=== PATIENT | male | born 1945 | race Caucasian/White ===

== ENCOUNTER 2019-07-18 13:04 | Outpatient (CLI) | payer MEDICARE ==
[2019-07-18 14:24] LABS: #Basophils 0.1 thou/uL (0.0-0.2); #Eosinphils 0.2 thou/uL (0.0-0.7); #Lymphocytes 2.3 thou/uL (1.20-3.40); #Monocytes 0.8 thou/uL (0.11-0.59); %Basophils 0.7 % (0.0-1.0); %Eosinophils 1.8 % (0.0-10.0); %Lymphocytes 22.1 % (21.0-51.0); %Monocytes 7.5 % (0.0-10.0); Mean Corpuscular HGB CONC 32.2 g/dL (32.0-36.0); Mean Corpuscular Hemoglobin 30.8 pg (27.0-31.0); Mean Corpuscular Volume 95.6 fL (78.0-98.0); Mean Platelet Volume 9.6 fL (7.4-10.4); Platelet Count 404 thou/uL (130-400); RBC Distribution Width 12.2 % (11.5-14.5); Red Blood Cell (RBC) Count 4.86 mill/uL (4.70-6.10); White Blood Cell (WBC) Count 10.2 thou/uL (4.8-10.8)
[2019-07-18 14:44] LABS: ALT (SGPT) 184 U/L (8-55); AST (SGOT) 122 U/L (5-34); Albumin 4.1 g/dL (3.4-4.8); Alkaline Phosphatase 631 U/L (40-110); Anion Gap 14 mmol/L (10-20); BUN (Urea Nitrogen) 20 mg/dL (8.4-25.7); Bilirubin, Direct 1.4 mg/dL (0.1-0.3); Bilirubin, Total 2.1 mg/dL (0.2-1.2); Calc. Creatinine Clearance 0 mL/min (70-130); Carbon Dioxide 24 mmol/L (23-31); Chloride 103 mmol/L (98-107); Estimated GFR-MDRD 49; Glucose 306 mg/dL (83-110); Potassium 4.4 mmol/L (3.5-5.1); Protein, Total 8.3 g/dL (5.8-8.1); Sodium 137 mmol/L (136-145)
--- NOTE | 2019-07-18 17:11 | EKG ---
Test Reason : Blood Pressure : / mmHG Vent. Rate : 094 BPM Atrial Rate : 094 BPM P-R Int : 160 ms QRS Dur : 090 ms QT Int : 364 ms P-R-T Axes : 030 007 -08 degrees QTc Int : 455 ms Normal sinus rhythm Minimal voltage criteria for LVH, may be normal variant Inferior infarct , age undetermined Possible Anterolateral infarct , age undetermined Abnormal ECG Confirmed by JAYLENE COWAN ([id number]) on 07/18/2019 5:11:10 PM Referred By: DESHAWN Confirmed By:JAYLENE COWAN
== END 2019-07-18 13:05 | disposition home or self-care (01) ==
LOC: LABBT 13:04 → EDSTATUS 13:15
PROVIDERS: ATTEND Surgery
DX: Z01.818 Encounter for other preprocedural examination (principal); K80.20 Calculus of gallbladder without cholecystitis without obstruction
CPT/HCPCS: 80048; 80076; 85025; 93005; 93010

== ENCOUNTER 2019-07-23 11:53 | Inpatient (IN) | payer MEDICARE ==
[2019-07-18 13:23] VITALS: BMI 27.5
[2019-07-23] MEDS ORDERED: Sodium Chloride 0.9% 100 ML ONE (12:22)
[2019-07-23] MEDS ORDERED: cefOXitin 2 GM VIAL ONE (12:22)
[2019-07-23] MEDS ORDERED: Bupivacaine HCl 0.25%/Epi 0.0005/PF 10 ML VIAL FS ONE ×2 (13:03→13:04)
[2019-07-23] MEDS ORDERED: Iothalamate Meglumine 60% 50 ML VIAL FS ONE ×2 (13:03→13:10)
[2019-07-23] MEDS ORDERED: Fentanyl 100 MCG/2 ML VIAL ONE ×2 (13:29→15:10)
[2019-07-23] MEDS ORDERED: Ondansetron HCl/PF 4 MG/2 ML Vial IVP PRN (14:47)
[2019-07-23] MEDS ORDERED: Promethazine HCl 25 MG/ML VIAL IM PRN ×2 (14:47→15:54)
[2019-07-23] MEDS ORDERED: Promethazine HCl 25 MG/ML VIAL SLOW IVP PRN (14:47)
[2019-07-23] MEDS ORDERED: Ondansetron PF 4 MG/2 ML Vial ONE (15:15)
[2019-07-23] MEDS ORDERED: PROPOFOL 200 MG/20 ML VIAL ONE (15:15)
[2019-07-23] MEDS ORDERED: Rocuronium Bromide 10 MG/ML (10ML VIAL) ONE (15:15)
[2019-07-23] MEDS ORDERED: Ketorolac Tromethamine 30 MG/ML VIAL ONE (15:15)
[2019-07-23] MEDS ORDERED: Glycopyrrolate 0.2 MG/ML 5 ML SYRINGE ONE (15:15)
[2019-07-23] MEDS ORDERED: Ondansetron PF 4 MG/2 ML Vial IVP PRN (15:54)
[2019-07-23] MEDS ORDERED: Morphine 4 MG/ML VIAL SLOW IVP PRN (15:54)
[2019-07-23] MEDS ORDERED: Morphine 2 MG/ML SYRINGE SLOW IVP PRN (15:54)
[2019-07-23] MEDS ORDERED: Mag-Al 1200 mg/1200 mg/30 ML UDCUP PO PRN (15:54)
[2019-07-23] MEDS ORDERED: Dextrose 5% in Water 1,000 ML IV PRN (15:54)
[2019-07-23] MEDS ORDERED: HYDROcodone/Acetaminophen 7.5/325 mg Tablet PO PRN ×2 (15:54)
[2019-07-23] MEDS ORDERED: hydrALAZINE 20 MG/ML VIAL SLOW IVP PRN (15:54)
[2019-07-23] MEDS ORDERED: Calcium Carbonate 500 MG ChewTAB PO PRN (15:54)
[2019-07-23] MEDS ORDERED: Dextrose 50% Abboject 50 ML SYRINGE SLOW IVP PRN (15:54)
[2019-07-23] MEDS: Sodium Chloride 0.9% 1,000 ML IV SCH (16:56)
[2019-07-23] MEDS: HumaLOG 300 UNITS/3 ML VIAL SC PRN ×2 (17:47→22:10)
[2019-07-23] MEDS ORDERED: Piperacillin/Tazobactam 3.375 GM in Sodium Chloride 0.9% 100 ML IVPB SCH (18:00)
[2019-07-23] MEDS ORDERED: diphenhydrAMINE 25 MG CAP PO PRN (18:41)
[2019-07-23] MEDS ORDERED: diphenhydrAMINE 50 MG/ML VIAL IVP SCH (18:45)
[2019-07-23] MEDS ORDERED: Gadobenate Dimeglumine 529 MG/1 ML (20ML VIAL) ONE (20:19)
[2019-07-23] MEDS: metroNIDAZOLE 500 MG TAB PO SCH (20:57)
[2019-07-23] MEDS: Famotidine 20 MG TAB PO SCH (20:57)
[2019-07-23] MEDS: Acetaminophen 500 MG TAB PO PRN (20:58)
--- NOTE | 2019-07-23 21:42 | OP ---
DATE OF PROCEDURE: 07/23/2019 PREOPERATIVE DIAGNOSIS: Symptomatic cholelithiasis with elevated liver tests. POSTOPERATIVE DIAGNOSIS: Gangrenous cholecystitis with Mirizzi-type changes. PROCEDURES: Subtotal laparoscopic cholecystectomy with placement of intraabdominal drain (cholangiogram was unable to be performed.) SPECIMEN: Gallbladder wall, partial. BLOOD LOSS: 50 mL. COMPLICATIONS: None. FINDINGS: There were gangrenous changes to the gallbladder and parts. There was purulent material in the gallbladder in the area of the base in the fundus of the gallbladder. There was such significant inflammatory type changes that more dissection was deemed dangerous and not performed. Subtotal just above this was performed. Drain was placed. TECHNIQUE: The patient was taken to the operating room and laid supine on the operating room table. After general anesthetic was obtained, the abdomen was shaved, prepped, and draped in a sterile fashion. A curved incision was made below the umbilicus. Cautery was used to dissect down to and score the fascia. Abdominal cavity entered bluntly using a Bre clamp. Holding stitch of PDS was placed on each side of the fascia. Arce trocar was placed. High-flow pneumoperitoneum was obtained. An upper midline 5 mm port and 2 right upper quadrant 5 mm ports were placed in direct visualization. The omentum was stuck over the top of the gallbladder. The gallbladder could not be seen. This was taken down. Laparoscopic LigaSure was opened to take this omentum off, because there were multiple blood vessels seen in the omentum. The gallbladder was finally exposed. It was unable to be grasped. A hole was made in order to facilitate grasping and it was full of purulent material. This was all suctioned out. The gallbladder was able to be pushed up over the liver. There was significant local inflammatory change, the whole gallbladder all the way down. The base of the gallbladder could never be exposed secondary to severe inflammation and scarring. Decision was made to perform subtotal cholecystectomy to prevent injury to the common bile duct below and the LigaSure was used to take the gallbladder wall off and as much as the posterior wall could be taken off from the liver bed was removed. It was placed in EndoCatch bag and brought out through the Tsering. Meticulous hemostasis was obtained on the liver bed. There was no ongoing bleeding in the abdomen. The right upper quadrant irrigated using sterile solution until returns were clear. A 19 round drain brought out through the right upper quadrant incision, left in the gallbladder fossa, sewn in place using silk suture, connected to ZIYAD drain. All port sites were infiltrated using local anesthetic. All ports were removed under camera visualization. Pneumoperitoneum was let down. PDS used to close the fascial defect below the umbilicus. The top 2 incisions were closed using 4-0 Monocryl and Dermabond. Antimicrobial disc and a Tegaderm placed over the drain site. If the patient's liver function test are normalized, he will need MRCP. If he has bile drainage in his drain, he will need an ERCP. He will be admitted postop. Job ID: [id number]
[2019-07-23] MEDS: Famotidine/PF 20 mg/2ml Vial SLOW IVP SCH (23:14)
[2019-07-24 05:41] LABS: #Basophils 0.1 thou/uL (0.0-0.2); #Eosinphils 0.2 thou/uL (0.0-0.7); #Lymphocytes 2.1 thou/uL (1.20-3.40); #Monocytes 0.9 thou/uL (0.11-0.59); #Neutrophils 5.7 thou/uL (1.40-6.50); %Basophils 0.9 % (0.0-1.0); %Eosinophils 1.8 % (0.0-10.0); %Lymphocytes 23.2 % (21.0-51.0); %Monocytes 10.2 % (0.0-10.0); %Neutrophils 63.9 % (42.0-75.0); Hemoglobin 12.8 g/dL (14.0-18.0); Mean Corpuscular HGB CONC 32.6 g/dL (32.0-36.0); Mean Corpuscular Hemoglobin 31.1 pg (27.0-31.0); Mean Corpuscular Volume 95.2 fL (78.0-98.0); Mean Platelet Volume 9.4 fL (7.4-10.4); Platelet Count 283 thou/uL (130-400); RBC Distribution Width 12.1 % (11.5-14.5); Red Blood Cell (RBC) Count 4.12 mill/uL (4.70-6.10); White Blood Cell (WBC) Count 8.9 thou/uL (4.8-10.8)
[2019-07-24] MEDS: Sodium Chloride 0.9% 1,000 ML IV SCH ×3 (05:55→23:49)
[2019-07-24] MEDS: Acetaminophen 500 MG TAB PO PRN ×2 (06:12→18:52)
[2019-07-24 06:17] LABS: ALT (SGPT) 213 U/L (8-55); AST (SGOT) 140 U/L (5-34); Albumin 3.2 g/dL (3.4-4.8); Alkaline Phosphatase 500 U/L (40-110); Anion Gap 10 mmol/L (10-20); BUN (Urea Nitrogen) 12 mg/dL (8.4-25.7); Bilirubin, Total 3.4 mg/dL (0.2-1.2); Calc. Creatinine Clearance 66 mL/min (70-130); Calcium 8.5 mg/dL (7.8-10.44); Carbon Dioxide 27 mmol/L (23-31); Chloride 105 mmol/L (98-107); Estimated GFR-MDRD 64; Globulin 3.1 g/dL (2.4-3.5); Glucose 134 mg/dL (83-110); Lipase 10 U/L (8-78); Potassium 3.8 mmol/L (3.5-5.1); Protein, Total 6.3 g/dL (5.8-8.1); Sodium 138 mmol/L (136-145)
--- NOTE | 2019-07-24 07:12 | PDOC.GSPN ---
Surgery Progress Note: Subj - Subjective Patient reports: no new complaints Narrative: Mr. Dhillon is a 74 y/o male who is POD 1 from subtotal laproscopic cholecystectomy with intrabdominal ZIYAD-drain placement. He is doing well this morning and only complaint is moderate abdominal soreness. He reports requesting to have a indwelling catheter put in due to feeling the urge to urinate, but being unable to. He has passed flatus a couple of times. He is tolerating diet well and has ambulated in the hallways 2x without issues. ZIYAD drain has been emptied 3x total since surgery. He denies chest pain, dyspnea, dizziness, nausea, vomiting, reflux, and passing of bowel movement yet. Surgery Progress Note: Obj - Vital signs Vital signs: Vital Signs - Most Recent Temp Pulse Resp BP Pulse Ox 97.9 F 62 18 154/89 H 94 L 07/24/19 03:57 07/24/19 03:57 07/24/19 03:57 07/24/19 03:57 07/24/19 05:30 - Physical Exam General: no distress, well developed ENT: normal mucosa Neck: no lymphadectomy, no masses Cardiovascular: regular rate and rhythm, no murmur, other (Pedal pulses 2+ bilaterally and symmetrically.) Respiratory: clear to auscultation, normal expansion, normal respiratory effort , breath sounds present Abdomen: soft, nondistended, positive bowel sounds, appropriately tender Psychiatric: oriented to time, oriented to person, oriented to place Wound: dressing clean,dry,intact, healing well (No erythema, purulent discharge , or bleeding from incisions or drain site.) Surgery Progress Note: Results - Labs Result Diagrams: 07/24/19 05:28 07/24/19 05:28 Lab results: Laboratory Results - last 24 hr 07/23/19 07/24/19 07/24/19 21:20 05:28 05:28 WBC 8.9 RBC 4.12 L Hgb 12.8 L Hct 39.2 L MCV 95.2 MCH 31.1 H MCHC 32.6 RDW 12.1 Plt Count 283 MPV 9.4 Neutrophils % 63.9 Lymphocytes % 23.2 Monocytes % 10.2 H Eosinophils % 1.8 Basophils % 0.9 Neutrophils # 5.7 Lymphocytes # 2.1 Monocytes # 0.9 H Eosinophils # 0.2 Basophils # 0.1 Sodium 138 Potassium 3.8 Chloride 105 Carbon Dioxide 27 Anion Gap 10 BUN 12 Creatinine 1.12 Estimated GFR (MDRD) 64 Glucose 134 H POC Glucose 244 H Calcium 8.5 Total Bilirubin 3.4 H AST 140 H ALT 213 H Alkaline Phosphatase 500 H Serum Total Protein 6.3 Albumin 3.2 L Globulin 3.1 Albumin/Globulin Ratio 1.0 L Lipase 10 07/24/19 05:39 WBC RBC Hgb Hct MCV MCH MCHC RDW Plt Count MPV Neutrophils % Lymphocytes % Monocytes % Eosinophils % Basophils % Neutrophils # Lymphocytes # Monocytes # Eosinophils # Basophils # Sodium Potassium Chloride Carbon Dioxide Anion Gap BUN Creatinine Estimated GFR (MDRD) Glucose POC Glucose 112 H Calcium Total Bilirubin AST ALT Alkaline Phosphatase Serum Total Protein Albumin Globulin Albumin/Globulin Ratio Lipase Surgery Progress Note: A/P - Plan Plan: Mr. Dhillon is a 74 y/o male who is POD 1 from subtotal laproscopic cholecystectomy with intrabdominal ZIYAD-drain placement. -Currently on Levofloxacin and Flagyl PO -May consider discharge if pain & symptoms are well controlled -Plan to remove ash today -Continue current diet -Monitor for bowel movement -Monitor pain -Encourage ambulation & use of spirometer Addendum - Physician - Physician Attestation Date/Time: 07/24/19 8558 I personally performed or re-performed the physical examination and medical decision making. I have verified all student documentation or findings, including history, physical exam and/or medical decision making. MRCP Derbes to see for possible ERCP
--- NOTE | 2019-07-24 10:59 | PRG ---
DATE OF SERVICE: 07/24/2019 SUBJECTIVE: Mr. Dhillon is postop day 1, Mirizzi syndrome type, subtotal cholecystectomy with drain placement. This morning, his liver function tests are high with his bilirubin up. He is hemodynamically stable. On exam, he complains of mild soreness. His wounds are healing well. ZIYAD drain is only serosanguineous. Bilirubin is 3.4 today that was up from 2 on his preop labs. His lipase is normal at 10. ASSESSMENT: Postop day 1, acute on chronic cholecystitis, cholecystectomy, subtotal, with Mirizzi type changes. PLAN: Have discussed with Dr. Sandy. He may need ERCP. We will start with MRCP to evaluate his common duct. This could all be just swelling and inflammation from the Mirizzi type syndrome. Job ID: [id number]
[2019-07-24] MEDS: NIFEdipine XL 90 MG TAB PO SCH (11:51)
[2019-07-24] MEDS: metroNIDAZOLE 500 MG TAB PO SCH ×3 (11:51→21:12)
[2019-07-24] MEDS: Losartan 25 MG TAB PO SCH (11:51)
[2019-07-24] MEDS: Famotidine/PF 20 mg/2ml Vial SLOW IVP SCH ×2 (11:52→22:21)
[2019-07-24] MEDS: Famotidine 20 MG TAB PO SCH ×2 (11:55→21:11)
--- NOTE | 2019-07-24 15:11 | MRI ---
MR of the abdomen with and without IV contrast INDICATION: History of laparoscopic cholecystectomy with elevated bilirubin TECHNIQUE: Multiplanar multisequence MR images were obtained of the abdomen with and without contrast utilizing MRCP protocol. Contrast: 20 cc of MultiHance was utilized. COMPARISON: None. FINDINGS: Mild motion artifact slightly limits image detail. Liver: No focal hepatic lesion is evident. No area of abnormal enhancement is demonstrated. Gallbladder and biliary system: The gallbladder is now surgically absent. There is heterogeneous sign al intensity seen filling the gallbladder fossa likely reflective of some mild edema as well as some residual hemorrhage from the patient's recent laparoscopic cholecystectomy. Small amount of dyana a is seen within Morison's pouch and along the right hepatic lobe. No large drainable fluid collection is grossly evident.The common bile duct measures: 3.8 mm . Pancreas: Normal appearing. Adrenal glands: Normal appearing. Kidneys: There is a 3 cm cyst involving the inferior pole of the right kidney. Left kidney is normal- appearing.. Spleen: Normal in size and signal intensity. Retroperitoneum and peritoneal cavity: No free fluid or lymphadenopathy is evident. There is bibasila r atelectasis. Osseous structures: Bone marrow signal intensity is within normal limits. IMPRESSION: 1. Cholecystectomy. 2. No gross intraluminal filling defect or intrahepatic or extra hepatic biliary ductal distention de monstrated. Some limitations examination is above. 3. Right renal cyst 4. Bibasilar atelectasis
[2019-07-24] MEDS: Tamsulosin HCl 0.4 MG CAP PO SCH (21:12)
--- NOTE | 2019-07-24 21:50 | CON ---
DATE OF CONSULTATION: HISTORY OF PRESENT ILLNESS: Mr. Dhillon is a 74-year-old, I was asked to see for elevated liver enzymes. He apparently had gone to see Dr. Ortiz recently, who manages his blood pressure. His daughter works in Dr. Ortiz's office. There, some labs were done that showed elevated liver enzymes on 07/12 with a bilirubin of 2.8. AST and ALT of 86 and 148, alkaline phosphatase of 565, direct bilirubin of 1.7 at that time. Apparently, he saw his PCP and had an ultrasound, which showed eventually gallstones, but that report is not available for my review. The patient was sent to see Dr. Ambrosio, had labs again that showed a bilirubin of 2.1, AST and ALT of 122 and 184, and alkaline phosphatase of 631, and bilirubin 1.4. The patient had a lap maile that was yesterday. Today, the LFTs are about the same. Bilirubin is 3.4. AST and ALT of 140 and 213, and alkaline phosphatase was 500. The patient had a complicated cholecystectomy with the fact that he had possible Mirizzi syndrome and the gallbladder cap had to be left in according to Dr. Ambrosio. The patient had a drain left in place, but there was no bilious drainage. The patient reports he feels completely fine today. I have talked with Dr. Ambrosio, I recommended to get an MRCP as opposed to proceeding with ERCP, and the MRCP has been read showing no filling defects and no dilated duct. There is some edema and residual hemorrhage in the gallbladder fossa and some edema under the right hepatic lobe, but no fluid collection. The common bile duct was measured at 3.8 mm. There was no intrahepatic ductal dilatation. The spleen appeared normal. The kidneys otherwise appeared normal. PAST MEDICAL HISTORY: History of upper and lower endoscopy in about 2014 related to anemia, was found to have significant hiatal hernia, which was subsequently repaired. He has some hypertension, he was just recently been diagnosed with diabetes. PAST SURGICAL HISTORY: Otherwise none. He has had some trauma related to his hand when he used to do [employer]. ALLERGIES: NONE KNOWN. MEDICATIONS: At home; 1. Nifedipine. 2. Losartan. 3. Insulin, just started. Medications here; 1. Tylenol. 2. Maalox. 3. DuoNeb. 4. Tums. 5. Benadryl. 6. Pepcid. 7. [place] p.r.n. 8. Insulin sliding scale. 9. Levofloxacin. 10. Morphine. 11. Zofran. 12. Protonix p.r.n. REVIEW OF SYSTEMS: Negative for dysphagia or odynophagia. Negative for antecedent pain to all this, except for occasional pain over the past several weeks after eating in the upper abdomen. He has had no melena, hematochezia, or hematemesis. He has no chest pain, shortness of breath, or dyspnea on exertion. Denies any weight loss. PHYSICAL EXAMINATION: VITAL SIGNS: Temperature is 97.2, pulse 63, blood pressure 130/65. GENERAL: The patient is resting comfortably. He is in no distress. LUNGS: Clear. HEART: Regular rate and rhythm without clicks or murmurs. ABDOMEN: Soft and nontender. No rebound. There is no guarding. Drain is in place with about 15 mL of serosanguineous fluid. EXTREMITIES: No clubbing, cyanosis, or edema. LABORATORY STUDIES: As per HPI. Lipase was in addition to noted above was 10. ASSESSMENT: Elevated LFTs. At this time, there are no overt signs of biliary obstruction with normal MRCP. These changes of LFTs may be related to inflammation as apparently, gallbladder was very sick with acute and chronic changes. There is no overt signs of biliary dilatation to indicate obstruction. There is no overt evidence of bile drainage from his drain. RECOMMENDATIONS: Repeat LFTs tomorrow and observe him. May consider HIDA scan if LFTs are not getting better, or if the patient develops pain. If the patient developed bilious fluid from his ZIYAD drain, then we had to proceed with ERCP. We will follow along with you. Job ID: [id number]
[2019-07-24] MEDS: HumaLOG 300 UNITS/3 ML VIAL SC PRN (22:21)
[2019-07-25] MEDS: Sodium Chloride 0.9% 1,000 ML IV SCH ×3 (00:32→23:26)
[2019-07-25 05:36] LABS: #Eosinphils 0.3 thou/uL (0.0-0.7); #Lymphocytes 1.6 thou/uL (1.20-3.40); #Monocytes 0.7 thou/uL (0.11-0.59); #Neutrophils 5.6 thou/uL (1.40-6.50); %Basophils 0.4 % (0.0-1.0); %Eosinophils 3.4 % (0.0-10.0); %Lymphocytes 18.9 % (21.0-51.0); %Monocytes 8.9 % (0.0-10.0); %Neutrophils 68.3 % (42.0-75.0); Hemoglobin 13.7 g/dL (14.0-18.0); Mean Corpuscular HGB CONC 31.9 g/dL (32.0-36.0); Mean Corpuscular Hemoglobin 30.5 pg (27.0-31.0); Mean Corpuscular Volume 95.6 fL (78.0-98.0); Mean Platelet Volume 9.7 fL (7.4-10.4); Platelet Count 263 thou/uL (130-400); RBC Distribution Width 12.2 % (11.5-14.5); White Blood Cell (WBC) Count 8.2 thou/uL (4.8-10.8)
[2019-07-25 06:02] LABS: ALT (SGPT) 175 U/L (8-55); AST (SGOT) 87 U/L (5-34); Albumin 3.2 g/dL (3.4-4.8); Alkaline Phosphatase 486 U/L (40-110); Bilirubin, Direct 1.8 mg/dL (0.1-0.3); Bilirubin, Total 2.7 mg/dL (0.2-1.2); Lipase 8 U/L (8-78); Protein, Total 6.5 g/dL (5.8-8.1)
[2019-07-25] MEDS: Acetaminophen 500 MG TAB PO PRN ×3 (08:14→20:41)
[2019-07-25] MEDS: Famotidine 20 MG TAB PO SCH ×2 (08:14→20:42)
[2019-07-25] MEDS: NIFEdipine XL 90 MG TAB PO SCH (08:14)
[2019-07-25] MEDS: metroNIDAZOLE 500 MG TAB PO SCH ×3 (08:14→20:42)
[2019-07-25] MEDS: Losartan 25 MG TAB PO SCH (08:16)
[2019-07-25] MEDS: Famotidine/PF 20 mg/2ml Vial SLOW IVP SCH ×2 (08:42→23:26)
--- NOTE | 2019-07-25 10:28 | PDOC.GSPN ---
Surgery Progress Note: Subj - Subjective Patient reports: no new complaints, tolerating liquids well Surgery Progress Note: Obj - Vital signs Vital signs: Vital Signs - Most Recent Temp Pulse Resp BP Pulse Ox 97.9 F 92 14 139/80 94 L 07/25/19 07:56 07/25/19 08:14 07/25/19 07:56 07/25/19 08:16 07/25/19 07:56 - Physical Exam General: no distress Cardiovascular: regular rate and rhythm Respiratory: clear to auscultation Abdomen: soft, non tender Wound: healing well (ZIYAD serosang) Surgery Progress Note: Results - Labs Result Diagrams: 07/25/19 05:07 07/24/19 05:28 Lab results: Laboratory Results - last 24 hr 07/25/19 07/25/19 07/25/19 05:07 05:07 05:10 WBC 8.2 RBC 4.50 L Hgb 13.7 L Hct 43.0 MCV 95.6 MCH 30.5 MCHC 31.9 L RDW 12.2 Plt Count 263 MPV 9.7 Neutrophils % 68.3 Lymphocytes % 18.9 L Monocytes % 8.9 Eosinophils % 3.4 Basophils % 0.4 Neutrophils # 5.6 Lymphocytes # 1.6 Monocytes # 0.7 H Eosinophils # 0.3 Basophils # 0.0 POC Glucose 122 H Total Bilirubin 2.7 H Direct Bilirubin 1.8 H AST 87 H ALT 175 H Alkaline Phosphatase 486 H Serum Total Protein 6.5 Albumin 3.2 L Lipase 8 Surgery Progress Note: A/P - Problem (1) Cholecystitis Current Visit: Yes Code(s): K81.9 - CHOLECYSTITIS, UNSPECIFIED Status: Acute - Plan Plan: kay Dhillon is a 74 y/o male who is POD 2 from subtotal laproscopic cholecystectomy with intrabdominal ZIYAD-drain placement. -Currently on Levofloxacin and Flagyl PO -May consider discharge if pain & symptoms are well controlled, will discuss with Chuy Sandy down to 2.7 -Likely going to have to go home with ash and return to remove in my office -ZIYAD will stay in for one week
[2019-07-25] MEDS: HumaLOG 300 UNITS/3 ML VIAL SC PRN ×2 (17:27→22:39)
[2019-07-25] MEDS: Tamsulosin HCl 0.4 MG CAP PO SCH (20:42)
[2019-07-26 05:11] LABS: ALT (SGPT) 145 U/L (8-55); AST (SGOT) 67 U/L (5-34); Albumin 3.4 g/dL (3.4-4.8); Alkaline Phosphatase 527 U/L (40-110); Anion Gap 13 mmol/L (10-20); BUN (Urea Nitrogen) 7 mg/dL (8.4-25.7); Bilirubin, Total 2.4 mg/dL (0.2-1.2); Calc. Creatinine Clearance 82 mL/min (70-130); Calcium 8.9 mg/dL (7.8-10.44); Carbon Dioxide 23 mmol/L (23-31); Chloride 106 mmol/L (98-107); Estimated GFR-MDRD 82; Globulin 3.5 g/dL (2.4-3.5); Glucose 173 mg/dL (83-110); Potassium 3.3 mmol/L (3.5-5.1); Protein, Total 6.9 g/dL (5.8-8.1); Sodium 139 mmol/L (136-145)
[2019-07-26] MEDS: Sodium Chloride 0.9% 1,000 ML IV SCH ×3 (05:40→10:37)
[2019-07-26] MEDS: HumaLOG 300 UNITS/3 ML VIAL SC PRN ×2 (05:45→11:32)
[2019-07-26] MEDS: Famotidine 20 MG TAB PO SCH (07:57)
[2019-07-26] MEDS: metroNIDAZOLE 500 MG TAB PO SCH (07:57)
[2019-07-26] MEDS: Acetaminophen 500 MG TAB PO PRN (07:57)
[2019-07-26] MEDS: Famotidine/PF 20 mg/2ml Vial SLOW IVP SCH (07:58)
[2019-07-26] MEDS: Losartan 25 MG TAB PO SCH (07:58)
[2019-07-26] MEDS: NIFEdipine XL 90 MG TAB PO SCH (07:58)
--- NOTE | 2019-07-26 10:17 | PRG ---
DATE OF SERVICE: 07/25/2019 SUBJECTIVE: Mr. Dhillon ate good last night. He is having some soup this evening. He remains afebrile. OBJECTIVE: VITAL SIGNS: Temperature max 97.9, pulse 90, and blood pressure 110/64. ABDOMEN: Soft and nontender. ZIYAD drain is serosanguineous. LABORATORY DATA: White count is 8.2, hemoglobin is 13.7 stable, platelet count is 263. Bilirubin is 2.7 down from 3.4 yesterday. AST is 87 down from 140 yesterday, ALT 135 down from 213 yesterday, and alkaline phosphatase 486, down from 631 on 06/21. ASSESSMENT: Status post cholecystectomy with possible Mirizzi syndrome. There seems to be biliary drainage with no evidence of bile draining from the ZIYAD drain and drop in liver function test. I have talked with Dr. Ambrosio that we can advance diet and just watch the patient's labs for one more day to continue to trend down where the patient can go home with plan to follow up on Tuesday with Dr. Ambrosio revealed ZIYAD and his catheter. At that time, he agreed to recheck labs and his liver function test continued to trend down, we would not do anything else. If they bump back up or trend back up, then we may need to consider outpatient ERCP. Dr. Jose August will be here, biopsies tomorrow. If the patient has trend up liver enzymes, he needs to stay. We have discussed these issues with the patient's family and Dr. Ambrosio. Job ID: [id number]
--- NOTE | 2019-07-26 10:34 | DIS ---
DATE OF ADMISSION: 07/23/2019 DATE OF DISCHARGE: 07/26/2019 ADMIT DIAGNOSES: Acute cholecystitis with Mirizzi type syndrome, elevated liver function test. POSTOPERATIVE DIAGNOSES: Acute cholecystitis with Mirizzi type syndrome, elevated liver function test. PROCEDURES: Laparoscopic subtotal cholecystectomy by Hebert with drain placement without complication. CONDITION ON DISCHARGE: Improved. STAFF: [facility]. HOSPITAL COURSE: The patient underwent MRCP postop due to elevated liver function test. His drain output was clear on the day of discharge. It will stay in to monitor for bile leak. His bilirubin was down from 3 to 2.4. Labs will be repeated as an outpatient. He is going home with ZIYAD drain as well as a leg bag Lynch for urinary retention. He will see me on Tuesday and I will likely pull his catheter and his ZIYAD out at that point. Job ID: [id number]
[2019-07-26 11:02] VITALS: BP 122/88; TEMP 98.2
== END 2019-07-26 12:35 | disposition home or self-care (01) | DRG 417 ==
LOC: SDC 11:53 → SURG A 14:38
PROVIDERS: ADMIT Surgery; ATTEND Surgery
PROC: 0FT44ZZ Resection of Gallbladder, Percutaneous Endoscopic Approach (ICD-10-PCS; principal; 2019-07-23)
DX: K81.2 Acute cholecystitis with chronic cholecystitis (principal); K83.1 Obstruction of bile duct; K82.A1 Gangrene of gallbladder in cholecystitis
CPT/HCPCS: 36415; 36416; 74183; 80053; 80076; 83690; 85025; 88304; A9577; J0694; J1200; J1885; J2405; J2543; J2704; J3010; J3490; S0028

== ENCOUNTER 2019-08-01 13:49 | Inpatient (IN) | payer MEDICARE ==
[2019-08-01] MEDS ORDERED: Ondansetron PF 4 MG/2 ML Vial IVP PRN (14:47)
[2019-08-01 14:50] VITALS: BMI 27.3
--- NOTE | 2019-08-01 15:48 | HP ---
HISTORY: Mr. Dhillon is being admitted for possible bile leak. He was here in the hospital last week, where he had a cholecystectomy secondary to acute on chronic cholecystitis. In fact, his gallbladder was so adhered to surrounding structures that the entire gallbladder removed and the cap was left in place. The drain was left in place, which showed minimal drainage and after about 3 days here, he was discharged on with some Flomax for urinary retention and Lynch catheter in place and a ZIYAD drain in place. He was at Dr. Ambrosio's office on Tuesday, maybe yesterday, and his drains removed, his Lynch was slowly removed, and he had labs repeated. His bilirubin had increased to 4.4 from 2.4 on 07/26. AST and ALT had gone up to 383 and 365 from 67 and 145 and alk phos comes to 249 from 527. I saw him today. He felt completely fine. Denying pain. He is eating well, he has had a little bit of postcholecystectomy diarrhea. He was sent for a CAT scan to re-evaluate as he had an MRI on 07/24 that showed no evidence of intrahepatic ductal dilatation or choledocholithiasis and had a 3 mm duct. The CAT scan today shows development of intrahepatic ductal dilatation, which is not noted on MRI from last week and increase in size of fluid collection in subhepatic space, a little bit of air. Dr. Gan called, he was worried about possibly of bile leak. This in combination with Dr. Ambrosio's concern for possible Mirizzi's like anatomy at the time of his laparoscopic cholecystectomy readmitted to the hospital and started on some antibiotics with plans for ERCP sometime in the next 24 hours. The patient unfortunately has eaten just a few hours ago at 12:30. Again, he denies pruritus, fever, chills, nausea, or vomiting. He is voiding well. He has been eating well. PAST MEDICAL HISTORY: 1. History of urinary retention with previous surgeries. 2. Hypertension. 3. History of diabetes. PAST SURGICAL HISTORY: Arm trauma in the past with surgery and recent laparoscopic cholecystectomy. He has had a colonoscopy in 2015 and EGD for iron deficiency anemia. Hiatal hernia repair after EGD in 2014 and found large hiatal hernia. ALLERGIES: PENICILLIN. HE HAD A REACTION TO ZOSYN ON LAST ADMISSION. HOME MEDICATIONS: 1. Nifedipine. 2. Losartan. 3. Insulin. 4. Flomax 0.4 daily. REVIEW OF SYSTEMS: Negative for chest pain, shortness of breath, dyspnea on exertion, melena, hematochezia, or hematemesis. PHYSICAL EXAMINATION: VITAL SIGNS: He is afebrile in the office earlier today, his temperature was 98, pulse was 87, blood pressure 120s over 80 to 90. GENERAL: He is alert and oriented to person, place, and time. He is conversant. He has good memory. HEENT: Oropharynx without lesions. He is mildly icteric. LUNGS: Clear. HEART: Regular without clicks or murmurs. ABDOMEN: Soft and nontender. Incisions are healing well. EXTREMITIES: No clubbing, cyanosis, or edema. LABORATORY DATA: As per HPI. IMAGING: As per HPI. ASSESSMENT: Recent laparoscopic cholecystectomy with elevated LFTs beforehand, but worsening after, there was concern for Mirizzi's like anatomy. There were no signs of biliary obstruction, however, on MRCP post surgery nor any evidence of filling defects. Now, his LFTs have gone up a little bit higher and we felt some intrahepatic ductal dilatation on his CT scan done today as well as worsening in the fluid collection of the gallbladder fossa with some development of air here that is concerning for possible ongoing bile leak. PLAN: 1. We will start broad-spectrum antibiotics for possibly bile leak and there is air present in the gallbladder fossa as well. 2. We will plan for HIDA scan this evening, in regard to this plan for ERCP for tomorrow as there are signs of intrahepatic ductal dilatation and there were concerns from Mirizzi's like anatomy, may have compression of distal duct related to the sick gallbladder. 3. The alkaline phosphatase elevation is a little bit out of proportion to that expected from choledocholithiasis, there maybe a sign of perihepatitis and/or infection of the fluid below the liver. However, there is no evidence of overt cholangitis or liver abscesses. The alkaline phosphatase was around 500 preop, possibly this is related to some type of cholestatic hepatitis insulin. We will check hepatitis panel and some autoimmune markers. Job ID: [id number]
[2019-08-01] MEDS: Sodium Chloride 0.9% 1,000 ML IV SCH (16:37)
[2019-08-01] MEDS: metroNIDAZOLE 250 MG, Admixture Fee 1 EACH in Premix Bag 1 BAG IVPB SCH (19:39)
[2019-08-02] MEDS: metroNIDAZOLE 250 MG, Admixture Fee 1 EACH in Premix Bag 1 BAG IVPB SCH ×4 (03:41→20:58)
[2019-08-02] MEDS: Sodium Chloride 0.9% 1,000 ML IV SCH ×2 (06:04→21:04)
[2019-08-02 06:42] LABS: Iron Binding Capacity, Total 226 mcg/dL (261-462); Lipase 19 U/L (8-78)
[2019-08-02 06:58] LABS: Ferritin 1453.47 ng/mL (22-322)
[2019-08-02 07:18] LABS: HBCM Index 0.18 S/CO (0-0.79); HBSAg Index 0.17 S/CO (0-0.99); Hep A IgM AB Non-Reactive (NonReactive); Hep A IgM S/CO 0.12 S/CO (0-0.79); Hep B Surf Ag Non-Reactive S/CO (NonReactive); Hep C IgG Ab Non-Reactive (NonReactive); Hep C Index 0.12 S/CO (0-0.79); Hepatitis B Core IgM Abs Non-Reactive (NonReactive)
[2019-08-02] MEDS: NIFEdipine XL 90 MG TAB PO SCH (08:11)
[2019-08-02] MEDS: Losartan 25 MG TAB PO SCH (08:11)
[2019-08-02] MEDS: Tamsulosin HCl 0.4 MG CAP PO SCH (08:12)
[2019-08-02 08:41] LABS: #Basophils 0.1 thou/uL (0.0-0.2); #Eosinphils 0.3 thou/uL (0.0-0.7); #Lymphocytes 1.1 thou/uL (1.20-3.40); #Monocytes 0.7 thou/uL (0.11-0.59); #Neutrophils 6.8 thou/uL (1.40-6.50); %Basophils 0.7 % (0.0-1.0); %Eosinophils 3.5 % (0.0-10.0); %Lymphocytes 11.8 % (21.0-51.0); %Monocytes 7.3 % (0.0-10.0); %Neutrophils 76.7 % (42.0-75.0); Hemoglobin 13.9 g/dL (14.0-18.0); Mean Corpuscular Volume 94.3 fL (78.0-98.0); Mean Platelet Volume 8.8 fL (7.4-10.4); Platelet Count 263 thou/uL (130-400); RBC Distribution Width 13.4 % (11.5-14.5); Red Blood Cell (RBC) Count 4.35 mill/uL (4.70-6.10); White Blood Cell (WBC) Count 8.9 thou/uL (4.8-10.8)
[2019-08-02 09:12] LABS: ALT (SGPT) 334 U/L (8-55); AST (SGOT) 277 U/L (5-34); Albumin 3.5 g/dL (3.4-4.8); Alkaline Phosphatase 957 U/L (40-110); Anion Gap 12 mmol/L (10-20); BUN (Urea Nitrogen) 14 mg/dL (8.4-25.7); Bilirubin, Total 10.7 mg/dL (0.2-1.2); Calc. Creatinine Clearance 67 mL/min (70-130); Carbon Dioxide 26 mmol/L (23-31); Chloride 105 mmol/L (98-107); Estimated GFR-MDRD 65; Globulin 3.3 g/dL (2.4-3.5); Glucose 157 mg/dL (83-110); Potassium 3.5 mmol/L (3.5-5.1); Protein, Total 6.8 g/dL (5.8-8.1); Sodium 139 mmol/L (136-145)
--- NOTE | 2019-08-02 10:00 | NM ---
HEPATOBILIARY SCAN: Date: 08/01/19 HISTORY: 74-year-old male with abnormal liver function tests. Patient had cholecystectomy on 07/23/19. Abnorma l CT scan of same date. RADIOPHARMACEUTICAL: 5.1 mCi technetium-99m mebrofenin injected intravenously. FINDINGS: There is tracer extraction by the liver with absence of excretion into the biliary tract or small bow el loops on the initial 1 hour and delayed 4 and 15 hour images. No tracer extravasation is seen. IMPRESSION: Findings are consistent with high grade biliary obstruction. Report called to Dr. Sandy at 0820 hours on 08/02/19. CODE CR. POS: [facility]
[2019-08-02] MEDS ORDERED: Indomethacin 50 MG SUPP ONE (12:29)
[2019-08-02] MEDS ORDERED: Iothalamate Meglumine 60% 50 ML VIAL FS ONE (12:29)
[2019-08-02] MEDS ORDERED: Ondansetron HCl/PF 4 MG/2 ML Vial IVP PRN (12:38)
[2019-08-02] MEDS ORDERED: Indomethacin 50 MG SUPP PR SCH (12:45)
[2019-08-02] MEDS ORDERED: PROPOFOL 200 MG/20 ML VIAL ONE (13:46)
[2019-08-02] MEDS ORDERED: Rocuronium Bromide 10 MG/ML (10ML VIAL) ONE (13:46)
[2019-08-02] MEDS ORDERED: Ondansetron PF 4 MG/2 ML Vial ONE (13:46)
[2019-08-02] MEDS ORDERED: Glycopyrrolate 0.2 MG/ML 5 ML SYRINGE ONE (13:46)
[2019-08-02] MEDS ORDERED: Lidocaine 1% PF 5 ML VIAL ONE (13:46)
--- NOTE | 2019-08-02 14:41 | RAD ---
ERCP: 08/02/2019 HISTORY: Biliary obstruction FINDINGS: 3 images performed during ERCP were provided. First image demonstrates a wire traversing th e common bile duct. The common bile duct is not adequately opacified for full assessment. There is a common bile duct stent on the final image. IMPRESSION: Placement of a common bile duct stent.
--- NOTE | 2019-08-02 15:45 | OP ---
DATE OF PROCEDURE: 08/02/2019 PROCEDURES PERFORMED: Endoscopic retrograde cholangiopancreatography with sphincterotomy and biliary stent placement. INDICATION FOR PROCEDURE: Abnormal liver function tests, possible choledocholithiasis/biliary obstruction. DESCRIPTION OF PROCEDURE: After the risks and benefits of the procedure were explained to the patient including risks of bleeding, infection, perforation, reactions to anesthesia, aspiration, and/or pain, informed consent was obtained. The patient was then taken to the endoscopy suite, where general anesthesia was administered with sedation and endotracheal tube intubation. Once the patient was sedated and intubated, he was then maneuvered into the prone position in anticipation of the ERCP. Using the standard duodenoscope, the scope was then introduced into the mouth with intubation of the esophagus, stomach, and the proximal small intestines with the findings listed below. The patient tolerated the procedure well with no immediate perioperative complications. Upon completion of the procedure, all equipment was removed from the patient and he was transferred to PACU in satisfactory condition. FINDINGS: EGD findings: Limited visualization of the esophagus, stomach, and the proximal small intestine was achieved during the EGD portion of this examination. Of the mucosa seen, normal-appearing mucosa was seen in the proximal, mid, and distal esophagus. However, within the gastric body and antrum, there exhibited patches of increased mucosal erythema in addition to one area where there was a 3 mm clean-based ulceration without any high-risk stigmata of bleeding. Multiple biopsies were taken of this ulceration and placed in a specimen jar for evaluation. Otherwise, there was no evidence of mass, lesions, or active/recent bleeding. Within the duodenal bulb, multiple small (1 to 2 mm) superficial ulcerations were seen without any high-risk stigmata of bleeding. Normal-appearing mucosa was then seen within the second portion of the duodenum. ERCP findings: The ampulla was easily identified within the second portion of the duodenum and using a 5 mm sphincterotome, the ampulla was successfully cannulated. A guidewire (Jagwire) was then placed into the biliary tree and advanced to the intrahepatic tree. A cholangiogram was initially performed, which showed filling of the distal common bile duct and the distal common hepatic duct, but did not show any additional filling beyond the proximal common hepatic duct concerning for high-grade obstruction. Given this high-grade obstruction, a generous sphincterotomy was performed in anticipation of a biliary stent placement.The sphincterotome was then exchanged for a 9 to 12 mm biliary balloon and an occlusion cholangiogram was performed. With the occlusion cholangiogram, some contrast was seen passing through a high-grade stricture/obstruction within the common hepatic duct that was well defined in terms of its luminal contour and good filling of the intrahepatic biliary tree beyond. The biliary balloon was then advanced past the stricture and inflated to 9mm. At this diameter, the balloon was able to be pulled past the obstruction, but no stones or debris were removed. Attempts to place a 10 cm biliary stent were unsuccessful due to lack of adequate length of the stent itself, so a 10-Latvian x 15 cm biliary stent was then placed and was able to bridge the area of stricture into the intrahepatic tree/proximal common hepatic duct. Good biliary drainage was noted at the end of the procedure. With these findings, all equipment was then removed from the patient and the patient was transferred to PACU in satisfactory condition. IMPRESSION: 1. High-grade biliary stenosis/stricture in the proximal common hepatic duct, status post biliary stent placement with 10-Latvian x 15 cm biliary stent. 2. Superficial ulcerations within the duodenal bulb. 3. A 3 mm ulceration seen in the distal gastric body with slightly cratered edges and no high-risk stigmata bleeding, status post biopsies concerning for nonsteroidal anti-inflammatory drugs versus Helicobacter pylori infection or gastritis. RECOMMENDATIONS: 1. Would continue to trend LFTs daily and monitor the patient clinically for resolution. 2. Would monitor the patient for post ERCP pancreatitis. 3. Would consider dedicated CT scan pancreatic protocol for better visualization of the common hepatic tree for possible mass compressing the proximal common hepatic duct. 4. The patient will need a repeat ERCP within the next 2 to 3 months for removal of the biliary stent and re-evaluation of the stricture. 5. Advance the diet as tolerated. 6. Pain control per primary team. 7. Would continue broad-spectrum antibiotics for at least the next 24 to 48 hours, but the length to be determined by primary team. 8. We will continue to follow. Please call with any questions. Job ID: [id number] MTDD
[2019-08-02] MEDS: Acetaminophen 500 MG TAB PO PRN ×2 (16:39→22:30)
[2019-08-03] MEDS: Acetaminophen 500 MG TAB PO PRN (04:08)
[2019-08-03] MEDS: metroNIDAZOLE 250 MG, Admixture Fee 1 EACH in Premix Bag 1 BAG IVPB SCH ×3 (04:08→19:35)
[2019-08-03 05:21] LABS: #Basophils 0.1 thou/uL (0.0-0.2); #Eosinphils 0.5 thou/uL (0.0-0.7); #Lymphocytes 1.6 thou/uL (1.20-3.40); #Monocytes 0.9 thou/uL (0.11-0.59); #Neutrophils 7.2 thou/uL (1.40-6.50); %Basophils 0.8 % (0.0-1.0); %Lymphocytes 15.2 % (21.0-51.0); %Monocytes 8.8 % (0.0-10.0); %Neutrophils 70.3 % (42.0-75.0); Hemoglobin 12.9 g/dL (14.0-18.0); Mean Corpuscular HGB CONC 33.5 g/dL (32.0-36.0); Mean Corpuscular Hemoglobin 31.7 pg (27.0-31.0); Mean Corpuscular Volume 94.5 fL (78.0-98.0); Mean Platelet Volume 8.8 fL (7.4-10.4); Platelet Count 261 thou/uL (130-400); RBC Distribution Width 13.2 % (11.5-14.5); Red Blood Cell (RBC) Count 4.06 mill/uL (4.70-6.10); White Blood Cell (WBC) Count 10.2 thou/uL (4.8-10.8)
[2019-08-03 05:43] LABS: ALT (SGPT) 279 U/L (8-55); AST (SGOT) 192 U/L (5-34); Albumin 3.2 g/dL (3.4-4.8); Alkaline Phosphatase 858 U/L (40-110); Anion Gap 9 mmol/L (10-20); BUN (Urea Nitrogen) 10 mg/dL (8.4-25.7); Bilirubin, Total 10.9 mg/dL (0.2-1.2); Calc. Creatinine Clearance 80 mL/min (70-130); Calcium 8.5 mg/dL (7.8-10.44); Carbon Dioxide 26 mmol/L (23-31); Chloride 106 mmol/L (98-107); Estimated GFR-MDRD 80; Globulin 3.1 g/dL (2.4-3.5); Glucose 140 mg/dL (83-110); Lipase 21 U/L (8-78); Potassium 3.4 mmol/L (3.5-5.1); Protein, Total 6.3 g/dL (5.8-8.1); Sodium 138 mmol/L (136-145)
[2019-08-03] MEDS: Losartan 25 MG TAB PO SCH (07:58)
[2019-08-03] MEDS: NIFEdipine XL 90 MG TAB PO SCH (07:58)
[2019-08-03] MEDS: Tamsulosin HCl 0.4 MG CAP PO SCH (07:58)
[2019-08-03] MEDS: Sodium Chloride 0.9% 1,000 ML IV SCH ×2 (08:22→15:58)
[2019-08-03] MEDS ORDERED: Dextrose 5% in Water 1,000 ML IV PRN (17:25)
[2019-08-03] MEDS ORDERED: Dextrose 50% Abboject 50 ML SYRINGE SLOW IVP PRN (17:25)
[2019-08-03] MEDS ORDERED: HumaLOG 300 UNITS/3 ML VIAL SC PRN (17:25)
--- NOTE | 2019-08-03 18:12 | PRG ---
DATE OF SERVICE: 08/03/2019 SUBJECTIVE: Mr. Dhillon feels well. He is getting up walking, he has had no abdominal pain. 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 OBJECTIVE: VITAL SIGNS: Temperature is 97, pulse 79, blood pressure 124/74. ABDOMEN: Soft and nontender. HEENT: He is mildly icteric. LABORATORY DATA: Sodium 138, potassium 3.4. Bilirubin is 10.9, it was 10.7 yesterday. AST and ALT are 182 and 279 down from 277 and 334. Alkaline phosphatase is down 858 from 957, is over 1000 on Tuesday. ASSESSMENT: Biliary obstruction, whether this is Mirizzi's like syndrome and inflammation from his severe cholecystitis or if there is neoplastic process at the chay hepatis is unclear. The stent was placed yesterday coming out, and he has not been febrile at all. If his LFTs continue to drop, we will let him go home tomorrow and follow his clinical course. He may need a SpyGlass study in a few weeks. If we do not have dropping of bilirubin, he may need further procedures as the MRCP and ERCP films indicate fairly high-grade obstruction at the chay hepatis. Job ID: [id number]
[2019-08-04] MEDS: metroNIDAZOLE 250 MG, Admixture Fee 1 EACH in Premix Bag 1 BAG IVPB SCH (03:56)
[2019-08-04] MEDS: Acetaminophen 500 MG TAB PO PRN (03:59)
[2019-08-04 05:44] LABS: #Eosinphils 0.6 thou/uL (0.0-0.7); #Lymphocytes 1.4 thou/uL (1.20-3.40); #Monocytes 0.9 thou/uL (0.11-0.59); #Neutrophils 7.2 thou/uL (1.40-6.50); %Basophils 0.3 % (0.0-1.0); %Eosinophils 6.1 % (0.0-10.0); %Lymphocytes 13.9 % (21.0-51.0); %Monocytes 8.9 % (0.0-10.0); %Neutrophils 70.9 % (42.0-75.0); Hemoglobin 13.6 g/dL (14.0-18.0); Mean Corpuscular HGB CONC 33.4 g/dL (32.0-36.0); Mean Corpuscular Hemoglobin 31.7 pg (27.0-31.0); Platelet Count 277 thou/uL (130-400); RBC Distribution Width 13.5 % (11.5-14.5); Red Blood Cell (RBC) Count 4.28 mill/uL (4.70-6.10); White Blood Cell (WBC) Count 10.2 thou/uL (4.8-10.8)
[2019-08-04 05:59] LABS: ALT (SGPT) 232 U/L (8-55); AST (SGOT) 123 U/L (5-34); Albumin 3.4 g/dL (3.4-4.8); Alkaline Phosphatase 798 U/L (40-110); Anion Gap 10 mmol/L (10-20); BUN (Urea Nitrogen) 8 mg/dL (8.4-25.7); Bilirubin, Total 7.8 mg/dL (0.2-1.2); Calc. Creatinine Clearance 76 mL/min (70-130); Calcium 8.8 mg/dL (7.8-10.44); Carbon Dioxide 26 mmol/L (23-31); Chloride 104 mmol/L (98-107); Estimated GFR-MDRD 75; Globulin 3.2 g/dL (2.4-3.5); Glucose 156 mg/dL (83-110); Potassium 3.3 mmol/L (3.5-5.1); Protein, Total 6.6 g/dL (5.8-8.1); Sodium 137 mmol/L (136-145)
[2019-08-04] MEDS ORDERED: Insulin Glargine 15 UNITS in Pre-Filled Syringe 1 EACH SC SCH (09:00)
[2019-08-04] MEDS: Tamsulosin HCl 0.4 MG CAP PO SCH (09:26)
[2019-08-04] MEDS: Losartan 25 MG TAB PO SCH (09:26)
[2019-08-04] MEDS: NIFEdipine XL 90 MG TAB PO SCH (09:26)
[2019-08-04 11:04] VITALS: BP 131/79; TEMP 98
[2019-08-06 12:30] LABS: ANA Symphony (Qualitative) Negative (Negative); ANA Symphony (Quantitative) 0.2 Ratio (< 0.7 Negative); EliA Vaculitis New Method **** NEW METHOD ****; Mitochondrial Ab 0.7 U/mL (<4 Negative); dsDNA IgG Antibody Less than 0.5 IU/mL (<10 Negative)
--- NOTE | 2019-08-07 01:49 | PQF ---
CHADWICK HURLEY CHRISTOPHER J MD [id number] SURG [id number] CLINICAL DOCUMENTATION CLARIFICATION FORM: POST DISCHARGE Addendum to original discharge summary date: ____ Late entry note date: __ DATE: 08/07/19 ATTN: Oni Cordero Please exercise your independent, professional judgment in responding to the clarification form. Clinical indicators are provided on the bottom of this form for your review Please check appropriate box(s): [ ] Biliary Obstruction is a postoperative complication of Cholecystectomy [ ] Biliary Obstruction is not a postoperative complication of Cholecystectomy [ ] Other condition, please specify: [ ] Unable to determine In addition, please specify: Present on Admission (POA): [ ] Yes [ ] No [ ] Unable to determine CLINICAL INDICATORS - SIGNS / SYMPTOMS / LABS H&P p1 08/01 Dr Sandy Pt being admitted for possible bile leak H&P p1 08/01 Dr Sandy He was here in the hospital last week, where he had a cholecystectomy 2/2 acute on chronic cholecystitis H&P p1 08/01 Dr Sandy In fact, his gallbladder was so adhered to surrounding structures that the entire gallbladder removed H&P p1 08/01 Dr Sandy This in combination with Dr Ambrosio's concern for possible Mirizzi's like anatomy at the time of his lap cholecystectomy. H&P p2 08/01 Dr Sandy Elevated LFTs beforehand RISK FACTORS H&P p1 08/01 - S/p Laparoscopic Cholecystectomy Operative report p1 08/02 Biliary obstruction TREATMENT: H&P p2 08/01 For HIDA scan Operative report p1 08/02 ERCP with Biliary stent insertion NOV 27 IV Levaquin (This form is maintained as a part of the permanent medical record) 2014 [employer]. All Rights Reserved Ayla [email or web address] [not provided] ARGENIS
== END 2019-08-04 13:05 | disposition home or self-care (01) | DRG 446 ==
LOC: SURG B 13:49
PROVIDERS: ADMIT Internal Medicine Gastroenterology; ATTEND Internal Medicine Gastroenterology
PROC: 0F798DZ Dilation of Common Bile Duct with Intraluminal Device, Via Natural or Artificial Opening Endoscopic (ICD-10-PCS; principal; 2019-08-03)
PROC: 0DB68ZX Excision of Stomach, Via Natural or Artificial Opening Endoscopic, Diagnostic (ICD-10-PCS; 2019-08-03)
DX: K83.1 Obstruction of bile duct (principal); I10 Essential (primary) hypertension; E11.9 Type 2 diabetes mellitus without complications; K25.9 Gastric ulcer, unspecified as acute or chronic, without hemorrhage or perforation; K26.9 Duodenal ulcer, unspecified as acute or chronic, without hemorrhage or perforation; Z90.49 Acquired absence of other specified parts of digestive tract; Z79.899 Other long term (current) drug therapy; Z79.4 Long term (current) use of insulin
CPT/HCPCS: 36415; 36416; 74170; 74330; 78226; 80053; 80074; 80076; 82728; 83516; 83540; 83550; 83690; 85025; 85610; 86038; 86225; 86301; 88305; 88312; A9537; C2625; J1610; J1815; J1956; J2001; J2405; J2704; Q9967

== ENCOUNTER 2019-11-22 06:58 | Day surgery (SDC) | payer MEDICARE ==
[2019-11-20 13:15] VITALS: BMI 26.3
[2019-11-22] MEDS ORDERED: Fentanyl 100 MCG/2 ML VIAL ONE (08:40)
[2019-11-22] MEDS ORDERED: Levofloxacin 500 mg/D5W 100 ml Premix Bag ONE (08:41)
[2019-11-22] MEDS ORDERED: Lidocaine 1% PF 5 ML VIAL ONE (10:40)
[2019-11-22] MEDS ORDERED: PROPOFOL 200 MG/20 ML VIAL ONE (10:40)
--- NOTE | 2019-11-22 11:14 | RAD ---
PORTABLE CHEST 1 VIEW: Date: 11/22/2019 Time: 0951 hours HISTORY: MediPort placement. FINDINGS: There is a right internal jugular MediPort with tip in the projection of the SVC. The heart size is n ormal. No lobar consolidation, pneumothoraces, or pleural effusions are seen. IMPRESSION: No acute process. POS: [facility]
--- NOTE | 2019-11-23 09:13 | OP ---
DATE OF PROCEDURE: 11/22/2019 PREOPERATIVE DIAGNOSIS: Cholangiocarcinoma. POSTOPERATIVE DIAGNOSIS: Cholangiocarcinoma. PROCEDURE PERFORMED: Tunneled central line with subcutaneous port (MediPort), right internal jugular, CT injectable. ANESTHESIA: General. ESTIMATED BLOOD LOSS: Minimal. COMPLICATIONS: None. SPECIMENS: None. FINDINGS: The tip of the catheter was at the atriocaval junction. DESCRIPTION OF PROCEDURE: The patient was taken to the operating room and laid supine on the operating room table. After general anesthetic was obtained, bilateral neck and chest was prepped and draped in a sterile fashion. Local anesthetic infiltrated over the right internal jugular vein. Internal jugular vein was cannulated using a 22-gauge finder needle followed by a Seldinger needle. Wire was passed into the superior vena cava under fluoro guidance. A small jose was made at the wire entrance site. A separate 3 cm incision made in the right upper chest. Subcutaneous pocket was made below the lower incision, tubing for the MediPort tunneled from the inferior to the superior incision and suture sheath was placed over the wire into the superior vena cava under fluoro guidance. The dilator and wire removed. The end of the catheter sewed into the sheath. The sheath was peeled away. The tip of the catheter was at the atriocaval junction. MediPort tubing cut to fit the MediPort at the lower incision, connected to the MediPort. The MediPort sewn to the chest wall in the subcutaneous pocket using Prolene. The wounds were irrigated and the MediPort was flushed with a heparin flush. All incisions were irrigated and closed using 4-0 Monocryl and Dermabond. The patient was sent to Recovery in stable condition. All instrument counts, needle counts, and lap counts are correct. Job ID: [id number]
== END 2019-11-22 11:25 | disposition home or self-care (01) ==
LOC: SDC 06:58
PROVIDERS: ATTEND Surgery
PROC: 02HV33Z Insertion of Infusion Device into Superior Vena Cava, Percutaneous Approach (ICD-10-PCS; principal; 2019-11-22)
DX: C22.1 Intrahepatic bile duct carcinoma (principal); Z88.0 Allergy status to penicillin
CPT/HCPCS: 36561; 71045; 82962; 88321; C1788; 36416; J1956; J2001; J2704; J3010

== ENCOUNTER 2019-12-19 13:36 | Outpatient (CLI) | payer MEDICARE ==
[~2019-12-19 13:36] MED LIST: Iopamidol 370 76% 100 ML VIAL ONE
--- NOTE | 2019-12-19 16:14 | CT ---
CT OF THE ABDOMEN WITH AND WITHOUT IV CONTRAST: 12/19/19 INDICATION: History of extrahepatic biliary ductal malignancy. COMPARISON: CT of the abdomen and pelvis with and without contrast dated 08/01/19 and MR of the abdomen with and without contrast dated 07/24/19. FINDINGS: Since the most recent comparison CT evaluation dated 08/01/19, there has been interval placement of a biliary duct stent extending from the 2nd stage of duodenum into the left hepatic duct. Small amount of pneumobilia is seen within the left hepatic lobe. There is stable moderate to prominent dilatatio n of the intrahepatic biliary system. There is an ill-defined 0.9 x 2.4 cm mildly enhancing mass seen circumferentially surrounding the proximal aspect of the common bile duct on image 24 of series 5 li zenaida representing the patient's extrahepatic biliary ductal malignancy. There is a new adjacent 1.5 c m hypodense lesion involving the adjacent right hepatic lobe, near the gallbladder fossa, on image 24 of series 5, measuring 1.5 cm. No additional focal hepatic lesion is evident. The previously seen he morrhage , fluid and gas debris within the gallbladder fossa has intervally resolved from the prior e xamination. The pancreas and adrenal glands are normal appearing. The spleen is normal appearing. There is a stab le right renal cyst. This measures approximately 2.6 cm. There is a tiny 1 to 2 mm nonobstructing vladislav al calculus within the superior pole of the right kidney. No free fluid or enlarged lymph nodes are evident. No pathologically enlarged lymph nodes are seen wi thin the upper abdomen. There has been interval development of opacification in multiple collateral v eins of the right chest wall which may be related a injection of the right upper extremity and accent uation of the venous structures of the right upper extremity. There has been interval development of a lytic lesion involving the left aspect of the L3 vertebral b aduelia measuring 2.5 x 1.9 x 1.8 cm. No additional lesion seen. IMPRESSION: 1. Interval placement of a biliary stent extending from the second portion of the duodenum into the left hepatic duct. There is some densities present within the proximal and distal end of the hepa tic duct which may reflect bile. A small amount of gas (pneumobilia) is present within the bile duct as well as within the left anterior hepatic biliary duct. There is an ill-defined soft tissue mass in volving the proximal aspect of the common bile duct that likely corresponds to the patient's known ma lignancy measuring approximately 3 x 2.4 cm. This lesion was poorly seen on the prior CT evaluation d ue to presence of hemorrhage and blood within the gallbladder fossa. Motion artifact heavily limited detail of this lesion on the prior MR examination. There is a small hypodense lesion that mildly enh ances in the adjacent liver parenchyma, near this lesion, suspicious for regional spread of the malig joseph into the right hepatic lobe. The degree of intrahepatic biliary ductal dilatation is stable and is moderate to prominent. Question patency of biliary stent. 2. Interval development of an osteolytic lesion involving the left L3 vertebral body suspicious for osteolytic metastatic disease. 3. Right nephrolithiasis and right renal cyst. Code T 1. POS: [facility]
== END 2019-12-19 13:37 | disposition home or self-care (01) ==
LOC: BICCT 13:36
PROVIDERS: ATTEND Internal Medicine Hematology & Oncology
DX: C24.0 Malignant neoplasm of extrahepatic bile duct (principal); N28.1 Cyst of kidney, acquired; N20.0 Calculus of kidney; M89.58 Osteolysis, other site
CPT/HCPCS: 74170; 80053; 82248; 83615; 83735; 84100; 84550; 86301

== ENCOUNTER 2019-12-20 13:11 | Inpatient (IN) | payer MEDICARE ==
[2019-12-20] MEDS ORDERED: Piperacillin/Tazobactam 4.5 GM VIAL ONE (14:23)
[2019-12-20] MEDS ORDERED: Sodium Chloride 0.9% 100 ML ONE ×2 (14:23→14:31)
[2019-12-20] MEDS ORDERED: cefTRIAXone\\ROCEPHIN 2 GM VIAL ONE (14:31)
[2019-12-20 14:45] LABS: #Lymphocytes 0.5 thou/uL (1.20-3.40); #Monocytes 0.3 thou/uL (0.11-0.59); #Neutrophils 7.6 thou/uL (1.40-6.50); %Eosinophils 0.2 % (0.0-10.0); %Lymphocytes 5.8 % (21.0-51.0); %Monocytes 3.6 % (0.0-10.0); %Neutrophils 90.4 % (42.0-75.0); Hemoglobin 11.1 g/dL (14.0-18.0); Mean Corpuscular HGB CONC 34.5 g/dL (32.0-36.0); Mean Corpuscular Hemoglobin 32.7 pg (27.0-31.0); Mean Corpuscular Volume 94.9 fL (78.0-98.0); Mean Platelet Volume 9.2 fL (7.4-10.4); Platelet Count 142 thou/uL (130-400); RBC Distribution Width 14.1 % (11.5-14.5); Red Blood Cell (RBC) Count 3.39 mill/uL (4.70-6.10); White Blood Cell (WBC) Count 8.4 thou/uL (4.8-10.8)
[2019-12-20 14:50] LABS: Bilirubin Negative (Negative); Blood, Urine Negative (Negative); Clarity Clear (Clear); Glucose, Urine (Dipstick) Normal (Negative); Leukocyte Negative Leu/uL (Negative); Nitrite Negative (Negative); Protein, Urine (Dipstick) Negative (Neg-Trace)
--- NOTE | 2019-12-20 15:00 | RAD ---
CHEST 1 VIEW: Date: 12/20/2019 HISTORY: Chest pain and fever. COMPARISON: Radiograph dated 11/22/2019. FINDINGS: Lungs are clear. No pneumothorax. No effusion. Cardiac silhouette and mediastinal contours within nor mal limits. Port catheter tip projects over the superior SVC. IMPRESSION: No acute intrathoracic abnormality. POS: [facility]
[2019-12-20 15:04] LABS: ALT (SGPT) 104 U/L (8-55); AST (SGOT) 60 U/L (5-34); Albumin 3.3 g/dL (3.4-4.8); Alkaline Phosphatase 437 U/L (40-110); Anion Gap 17 mmol/L (10-20); BUN (Urea Nitrogen) 25 mg/dL (8.4-25.7); Bilirubin, Total 6.1 mg/dL (0.2-1.2); Calc. Creatinine Clearance 0 mL/min (70-130); Calcium 8.5 mg/dL (7.8-10.44); Carbon Dioxide 15 mmol/L (23-31); Chloride 102 mmol/L (98-107); Estimated GFR-MDRD 54; Globulin 3.4 g/dL (2.4-3.5); Glucose 144 mg/dL (83-110); Lipase 20 U/L (8-78); Potassium 3.6 mmol/L (3.5-5.1); Protein, Total 6.7 g/dL (5.8-8.1); Sodium 130 mmol/L (136-145)
[2019-12-20] MEDS ORDERED: Ondansetron ODT 4 MG TAB PO PRN (15:37)
[2019-12-20] MEDS ORDERED: Calcium Carbonate 500 MG ChewTAB PO PRN (15:37)
[2019-12-20] MEDS ORDERED: Ondansetron PF 4 MG/2 ML Vial IVP PRN (15:37)
[2019-12-20] MEDS ORDERED: Morphine 2 MG/ML SYRINGE SLOW IVP PRN (15:45)
[2019-12-20] MEDS ORDERED: D5 0.9% NS w/ 20 mEq KCl 1,000 ML IV SCH (15:45)
[2019-12-20 16:13] LABS: INR-International Normal Ratio 1.1; Prothrombin Time 14.2 SEC (12.0-14.7)
[2019-12-20 16:14] LABS: PTT 27.1 SEC (22.9-36.1)
[2019-12-20] MEDS ORDERED: Magnesium Sulfate 4 GM in Sodium Chloride 0.9% 250 ML 250 ML IVPB SCH (16:45)
[2019-12-20] MEDS ORDERED: Insulin Regular 300 UNITS/3 ML VIAL SC PRN ×2 (17:31)
[2019-12-20] MEDS ORDERED: Dextrose 50% Abboject 50 ML SYRINGE SLOW IVP PRN (17:31)
[2019-12-20] MEDS ORDERED: Dextrose 5% in Water 1,000 ML IV PRN (17:31)
[2019-12-20] MEDS: NS 0.9% w/ 20 MEQ KCL 1,000 ML/1,000 ML BAG IV SCH (17:49)
[2019-12-20] MEDS ORDERED: hydrALAZINE 20 MG/ML VIAL SLOW IVP PRN (18:16)
[2019-12-20 18:35] VITALS: BMI 25.9
--- NOTE | 2019-12-20 19:26 | HP ---
PRIMARY CARE PHYSICIAN: Misty Yanes MD PRIMARY ONCOLOGIST: Rajat Taylor MD PRIMARY PROPAGATOR: Oni Sandy MD CHIEF COMPLAINT: Abnormal LFTs. HISTORY OF PRESENT ILLNESS: The patient is a 74-year-old male with cholangiocarcinoma, on chemotherapy, presented to the emergency room with above complaints. The patient was diagnosed with cholangiocarcinoma earlier this year. He is currently on chemotherapy. His last round of chemotherapy was yesterday. Due to jaundice, he underwent a CT scan of the abdomen that was consistent with suspected cholangitis. He also had a low-grade fever of 99 with some chills earlier today. He had mild nausea with hiccups; however, denies any vomiting. No abdominal pain reported. His urine is normally dark post chemo for few days per patient report. 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 He denies any cough, shortness of breath, wheezing, sick contacts, recent travel, or skin rash. In the emergency room, his bilirubin was 6.1 with AST of 60, ALT of 104, alkaline phosphate of 437. His bilirubin yesterday was 7.8 with direct bilirubin of 5.8, AST of 77, ALT of 123, alkaline phosphate of 533. His CA-19-9 was 310. His creatinine yesterday was 1.47. He received IV ceftriaxone with IV fluids in the emergency room. The patient is allergic to Zosyn. PAST MEDICAL HISTORY: 1. 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 2. Hiatal hernia. 3. Hypertension. 4. Impaired glucose tolerance. 5. History of urinary retention with previous surgery. 6. Hyponatremia/hypomagnesemia. 7. Metabolic acidosis. PAST SURGICAL HISTORY: 1. Cholecystectomy. 2. Biliary stents. 3. Hernia repair. 4. Bilateral cataract surgery. 5. ERCP. 6. MediPort. ALLERGIES: THE PATIENT IS ALLERGIC TO SULFA AND ZOSYN. CURRENT HOME MEDICATIONS: 1. Levemir 14 units on the days post chemotherapy due to hyperglycemia associated with chemo. 2. Losartan 50 mg daily. 3. Nifedipine extended release 90 mg daily. FAMILY HISTORY: Father with diabetes. Heart disease and hypertension runs in his family. SOCIAL HISTORY: He denies current use of smoking, alcohol, or drug use. He makes his own decision with the help of his family. REVIEW OF SYSTEMS: All other review of systems was reviewed and were found negative. PHYSICAL EXAMINATION: VITAL SIGNS: Temperature 98.2, respirations of 16, pulse rate of 113, blood pressure of 113/78, O2 saturation 98% on room air. GENERAL: A 74-year-old male, in no apparent distress. HEENT: Head, atraumatic and normocephalic. Sclerae icteric. Moist mucous membranes. No oral lesion. NECK: Supple. No JVD. No carotid bruit. LUNGS: Clear to auscultation bilaterally. No wheezing, rales, or rhonchi. HEART: S1 and S2 present. Regular rate and rhythm. No rubs or gallops. ABDOMEN: Soft, nontender. Bowel sounds present. No rebound or guarding. No costovertebral angle tenderness. EXTREMITIES: No edema or calf tenderness. NEUROLOGIC: Grossly nonfocal. Moves all 4 extremities. PSYCHIATRIC: Alert, awake, oriented x3. SKIN: Warm and dry. LYMPH NODES: No palpable lymph nodes in the neck. PERIPHERAL VASCULAR: Radial pulses palpable bilaterally. MUSCULOSKELETAL: No joint swelling tenderness. LABORATORY FINDINGS: As discussed above. CBC showed WBC 8.4 with hemoglobin 11.1, hematocrit 32.2, platelet of 142. PT/INR, PTT normal range. Chemistry showed sodium 130, potassium 3.6, chloride 102, bicarb 15, BUN of 25, creatinine 1.3. The creatinine yesterday was 1.47. LFTs as discussed above. Magnesium 1.3. Urinalysis showed urobilinogen without any WBC bacteria. IMAGING STUDIES: Chest x-ray by my review was negative for infiltrate. CT abdomen by my review as discussed above. IMPRESSION: 1. Cholangitis. 2. Cholangiocarcinoma, on chemotherapy. 3. Hypertension. 4. Hyperlipidemia. 5. Impaired glucose tolerance. 6. Right-sided nephrolithiasis. 7. 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 It is measuring 2.5 x 1.9 x 1.8 cm. 8. History of urinary retention with previous surgery. 9. Chronic kidney disease, stage 3. PLAN: The patient will be monitored on the medical floor. LFTs will be monitored on a daily basis. We will start him on meropenem. We will replace magnesium. Consult Gastroenterology, Dr. Sandy. Due to osteolytic lesion in the spine, we will consult Neurosurgery as well for possible recommendation on TLSO brace. We will also add p.r.n. medications. We will resume Procardia XL. We will hold losartan for now. The patient understands the above plan of care. Job ID: [id number]
--- NOTE | 2019-12-20 20:11 | CON ---
DATE OF CONSULTATION: 12/20/2019 REASON FOR CONSULTATION: Elevated liver enzymes, chills, low-grade temperature, possible cholangitis. HISTORY OF PRESENT ILLNESS: Mr. Dhillon is a very pleasant 74-year-old, who last July was admitted with what was felt to be gallbladder disease and had a cholecystectomy. Liver enzymes initially improved, but then remained elevated. The pathology was negative. Ultimately, MRCP was performed, which was read as normal, but subsequent review was not. ERCP was performed. It showed a stricture in the common hepatic duct, very suggestive of Klatskin tumor. ERCP was performed with stenting and then he was referred to [facility], where he had spy glass confirming a Klatskin tumor, obstruction of the right intrahepatic ductal system and had a non-coated Wallstent placed in the left intrahepatic ductal system. His bilirubin came down from around 10 to 2. He saw a surgeon and there were plans for right hepatectomy. However, on workup, he was found to have metastatic disease in the L3 spine. He has really never had any pain with regard to any of that. He is on his 4th course of chemotherapy with Dr. Taylor and he was noted to be somewhat icteric by his family or Dr. Taylor and labs were done, which showed a bilirubin increased from 1.8 on 12/11 to 7.8 on 12/18. His alkaline phosphatase remained about the same at about 533. AST and ALT are slightly up at 77 and 123. At that time, the patient was denying any symptoms otherwise. He had a CAT scan done yesterday that I have reviewed with Radiology. It essentially shows some expected pneumobilia in the left hepatic lobe, stable moderate intrahepatic biliary dilatation on the left and right side, unchanged from previous imaging. Also, there was about a 9 x 2.4 cm enhancing mass around the proximal aspect of the common bile duct. This is a little bit bigger than previously noted. Also, 1.5 cm hypodense lesion in the right hepatic lobe, which is bigger than previously noted. There is no evidence of free fluid or enlarged lymph nodes. The osteolytic lesion L3 is noted as well. The patient states that he was having some chills since Tuesday and occasionally feel hot, temperature 99. Ultimately, when he conveyed this to Dr. Taylor, he was advised to come to the emergency room to be admitted. In the emergency room, he was stable. He was seen by Dr. Matos, who I talked with and blood cultures were drawn based on his history. He has had no respiratory symptoms. He has been around no one sick with COVID. He does have some family members work in the hospital, but he tries to stay away. He has no sore throat, cough, shortness of breath, rashes, myalgias, or arthralgias. Denies any pruritus. Denies any dark urine. In the emergency room, he was stable with no fever, normal white count, and the above noted liver test. Decision was made to admit him and place him on antibiotics after blood cultures. PAST MEDICAL HISTORY: 1. Cholangiocarcinoma, diagnosed recently. 2. Hypertension. 3. Type 2 diabetes. PAST SURGICAL HISTORY: Cholecystectomy, metallic uncoated Wallstent in left hepatic system into the common bile duct, previous hernia repair, cataract surgery, arm trauma in the past. Also noted, he has had an EGD and colonoscopy in 2014. There was a large hiatal hernia then, which was repaired SOCIAL HISTORY: Lives at home alone. He used to smoke, does not now, stopped over 10 years ago. 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 ALLERGIES: PENICILLIN. APPARENTLY, HE HAD A REACTION TO ZOSYN AT LAST ADMISSION. MEDICATIONS AT HOME: Losartan, nifedipine, chemotherapy regimen. PRESENT INPATIENT MEDICATIONS: Meropenem, normal saline 100, hydralazine p.r.n., glucagon p.r.n., Pepcid, calcium carbonate, Tylenol. PHYSICAL EXAMINATION: VITAL SIGNS: Temperature is 98, pulse 92, blood pressure 130/67. GENERAL: He appears well. He is not overtly jaundiced, although room is lit with typical hospital lighting, but dark in the room. NECK: Supple. No nodes. LUNGS: Clear. ABDOMEN: Soft and nontender with no rebound or guarding. There is no palpable hepatosplenomegaly. EXTREMITIES: No clubbing, cyanosis, or edema. LABORATORY STUDIES: As per HPI. ASSESSMENT AND PLAN: Elevated liver enzymes. He has had an increase in his tumor marker with a CA 19-9 being 138 on the , 168 on 10/08, and now is 310 on 12/18. The ductal dilatation really is not much different than it was before on his scans. There is air in the left system, which indicates that system is patent. He could have a low-grade cholangitis. I do not think that he needs an endoscopic retrograde cholangiopancreatography at this time. I will wait for blood cultures to keep on antibiotics. More concerning is the fact that there is some findings on his CT that indicate that he may have some advancement of disease. It is possible that these changes whether they are present or not seen because of the postoperative state of the initial imaging here, but the advancing CA 19-9 tumor advancement is a concern. There is no evidence of deep venous thromboses in the legs. He needs to be on deep venous thrombosis prophylaxis as he has malignancy and reviewing his medications, I do not see that has been done, but we will get that started. We will follow along with you. Job ID: [id number]
[2019-12-20] MEDS: Acetaminophen 325 MG TAB PO PRN (21:09)
[2019-12-20] MEDS: MEROPENEM 1 GM/50 ML 1 GM in Premix Bag 1 BAG IVPB SCH (21:28)
[2019-12-21 05:10] LABS: #Lymphocytes 0.8 thou/uL (1.20-3.40); #Monocytes 0.2 thou/uL (0.11-0.59); #Neutrophils 8.1 thou/uL (1.40-6.50); %Basophils 0.1 % (0.0-1.0); %Eosinophils 0.2 % (0.0-10.0); %Lymphocytes 8.5 % (21.0-51.0); %Monocytes 1.9 % (0.0-10.0); %Neutrophils 89.3 % (42.0-75.0); Hemoglobin 10.1 g/dL (14.0-18.0); Mean Corpuscular HGB CONC 33.7 g/dL (32.0-36.0); Mean Corpuscular Hemoglobin 32.2 pg (27.0-31.0); Mean Corpuscular Volume 95.5 fL (78.0-98.0); Mean Platelet Volume 9.1 fL (7.4-10.4); Platelet Count 128 thou/uL (130-400); RBC Distribution Width 14.1 % (11.5-14.5); Red Blood Cell (RBC) Count 3.15 mill/uL (4.70-6.10); White Blood Cell (WBC) Count 9.1 thou/uL (4.8-10.8)
[2019-12-21] MEDS: MEROPENEM 1 GM/50 ML 1 GM in Premix Bag 1 BAG IVPB SCH ×3 (05:17→20:38)
[2019-12-21] MEDS: NS 0.9% w/ 20 MEQ KCL 1,000 ML/1,000 ML BAG IV SCH ×3 (05:18→15:32)
[2019-12-21 05:32] LABS: ALT (SGPT) 104 U/L (8-55); AST (SGOT) 79 U/L (5-34); Albumin 3.1 g/dL (3.4-4.8); Alkaline Phosphatase 376 U/L (40-110); Anion Gap 13 mmol/L (10-20); BUN (Urea Nitrogen) 20 mg/dL (8.4-25.7); Bilirubin, Direct 3.6 mg/dL (0.1-0.3); Bilirubin, Total 4.9 mg/dL (0.2-1.2); Calc. Creatinine Clearance 52 mL/min (70-130); Calcium 8.2 mg/dL (7.8-10.44); Carbon Dioxide 22 mmol/L (23-31); Chloride 102 mmol/L (98-107); Estimated GFR-MDRD 54; Glucose 150 mg/dL (83-110); Magnesium 1.9 mg/dL (1.6-2.6); Phosphorus 2.7 mg/dL (2.3-4.7); Potassium 3.6 mmol/L (3.5-5.1); Protein, Total 6.4 g/dL (5.8-8.1); Sodium 133 mmol/L (136-145)
[2019-12-21] MEDS: Acetaminophen 325 MG TAB PO PRN ×2 (07:53→20:42)
[2019-12-21] MEDS: NIFEdipine XL 90 MG TAB PO SCH (07:53)
[2019-12-21] MEDS: Enoxaparin Sodium 30 MG/0.3 ML SYRINGE SC SCH (07:53)
[2019-12-21] MEDS: Famotidine 20 MG TAB PO SCH (07:53)
[2019-12-21] MEDS ORDERED: Losartan 25 MG TAB PO SCH (09:00)
--- NOTE | 2019-12-21 15:33 | PRG ---
DATE OF SERVICE: 12/21/2019 SUBJECTIVE: Mr. Dhillon never has had any pain. He did have chills again last night. He said he is voiding well. OBJECTIVE: VITAL SIGNS: Temperature 100.2, pulse 76, blood pressure 92/62. ABDOMEN: Soft and nontender. He is mildly icteric. There is no palpable hepatosplenomegaly. SKIN: Warm and dry. LABORATORY DATA: White count 9.1, hemoglobin 10.1, platelet count 128, neutrophils 89%. Bilirubin is down to 4.9 from 6.1, AST is 79, ALT is 104, alkaline phosphatase is 376, down from 437. Blood culture shows two of two bottles positive for gram-negative rods. 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 Again, I have talked with his therapeutic endoscopist in [place] who recommended to continue IV antibiotics and observation at this time. RECOMMENDATIONS: 1. Continue IV fluids. We will drop rate a little bit. He is voiding quite a bit. 2. Monitor LFTs. 3. Continue IV antibiotics. 4. If he continues remain febrile, we need to think about the possibility of his Port-A-Cath being infected. I hear no murmurs or see no signs of endocarditis, but that would be a consideration as well if he remains febrile and keeps having night sweats. Job ID: [id number]
--- NOTE | 2019-12-21 17:38 | PDOC.HOSPP ---
- Subjective Encounter Date: 12/21/19 Encounter Time: 12:00 Subjective: Patient seen and examined for Cholangitis. Feels gen weak. No CP or SOB. No new complaints. No overnight events - Objective Vital Signs & Weight: Vital Signs (12 hours) Temp Pulse Resp BP BP Pulse Ox 12/21/19 16:10 99.8 F H 75 18 103/66 94 L 12/21/19 11:44 98.9 F 76 18 98/62 94 L 12/21/19 10:00 98 F 12/21/19 08:00 97 12/21/19 07:58 100.2 F H 96 16 118/71 97 12/21/19 07:53 96 118/77 12/21/19 07:06 97 Weight Weight 165 lb 4.8 oz I&O: 12/20/19 12/21/19 12/22/19 06:59 06:59 06:59 Intake Total 1700 Balance 1700 Result Diagrams: 12/21/19 04:53 12/21/19 04:53 Additional Labs: Accuchecks 12/21/19 12/21/19 12/21/19 16:14 11:47 04:58 POC Glucose 151 H 303 H 163 H 12/20/19 20:19 POC Glucose 178 H Microbiology 12/20/19 14:24 Venous blood - Right Hand Blood Culture - Preliminary Gram Negative Jeffy 12/20/19 14:24 Venous blood - Left Hand Blood Culture - Preliminary Gram Negative Jeffy Laboratory Tests 12/21/19 04:53 Total Bilirubin 4.9 H Direct Bilirubin 3.6 H AST 79 H ALT 104 H Alkaline Phosphatase 376 H Hospitalist ROS - Review of Systems Respiratory: denies: cough, dry, shortness of breath, hemoptysis, SOB with excertion, pleuritic pain, sputum, wheezing, other Cardiovascular: denies: chest pain, palpitations, orthopnea, paroxysmal noc. dyspnea, edema, light headedness, other - Medication Medications: Active Medications Generic Name Dose Route Start Last Admin Trade Name Freq PRN Reason Stop Dose Admin Acetaminophen 325 mg 12/20/19 15:45 12/21/19 07:53 Tylenol PO 325 mg Q6H PRN Administration Headache/Fever or Pain Enoxaparin Sodium 30 mg 12/21/19 09:00 12/21/19 07:53 Lovenox SC 30 mg 0900 YULISA Administration Famotidine 20 mg 12/21/19 09:00 12/21/19 07:53 Pepcid PO 20 mg DAILY YULISA Administration Meropenem 1 gm/ Device 50 mls @ 100 mls/hr 12/20/19 22:00 12/21/19 13:39 IVPB 50 mls Q8HR YULISA Administration Potassium Chloride/Sodium Chloride 1,000 ml in 1,000 mls @ 75 mls/hr 12/21/19 14:36 12/21/19 15:32 Ns 0.9% W/ 20 Meq Kcl IV Not Given .[id number] YULISA Insulin Human Regular 0 units 12/20/19 17:31 12/21/19 12:32 Humulin R SC 5 unit .MILD SLIDING SCALE PRN Administration Mild Correctional Scale Nifedipine 90 mg 12/21/19 09:00 12/21/19 07:53 Procardia Xl PO 90 mg QAM YULISA Administration - Exam General Appearance: NAD Heart: RRR, no gallops Respiratory: no rales, no ronchi Gastrointestinal: non-tender, non-distended, normal bowel sounds Extremities: no cyanosis Neurological: no new deficit Hosp A/P - Plan DVT proph w/SCDs 1. Cholangitis with bacteremia 2. Cholangiocarcinoma, on chemotherapy. 3. Hypertension. 4. Hyperlipidemia. 5. Impaired glucose tolerance. 6. Right-sided nephrolithiasis. 7. L3 Osteolytic lesion. 8. History of urinary retention with previous surgery. 9. Chronic kidney disease, stage 3. 10. Hypomagnesemia. PLAN: Cont Meropenem Cont IVF Cont Full liqd diet I d/w NSG - no need for TLSO Cont other meds as above AM labs
[2019-12-22] MEDS: NS 0.9% w/ 20 MEQ KCL 1,000 ML/1,000 ML BAG IV SCH ×3 (04:54→20:19)
[2019-12-22] MEDS: MEROPENEM 1 GM/50 ML 1 GM in Premix Bag 1 BAG IVPB SCH ×2 (05:32→13:36)
[2019-12-22 06:19] LABS: #Eosinphils 0.1 thou/uL (0.0-0.7); #Lymphocytes 0.9 thou/uL (1.20-3.40); #Monocytes 0.3 thou/uL (0.11-0.59); #Neutrophils 7.8 thou/uL (1.40-6.50); %Basophils 0.2 % (0.0-1.0); %Eosinophils 0.9 % (0.0-10.0); %Lymphocytes 9.4 % (21.0-51.0); %Neutrophils 86.5 % (42.0-75.0); Hemoglobin 9.5 g/dL (14.0-18.0); Mean Corpuscular HGB CONC 33.6 g/dL (32.0-36.0); Mean Corpuscular Hemoglobin 32.3 pg (27.0-31.0); Mean Platelet Volume 9.3 fL (7.4-10.4); Platelet Count 114 thou/uL (130-400); RBC Distribution Width 14.3 % (11.5-14.5); Red Blood Cell (RBC) Count 2.95 mill/uL (4.70-6.10)
[2019-12-22 06:39] LABS: ALT (SGPT) 116 U/L (8-55); AST (SGOT) 104 U/L (5-34); Albumin 2.8 g/dL (3.4-4.8); Alkaline Phosphatase 348 U/L (40-110); Anion Gap 10 mmol/L (10-20); BUN (Urea Nitrogen) 17 mg/dL (8.4-25.7); Bilirubin, Direct 3.8 mg/dL (0.1-0.3); Bilirubin, Total 5.4 mg/dL (0.2-1.2); Calc. Creatinine Clearance 62 mL/min (70-130); Calcium 8.3 mg/dL (7.8-10.44); Carbon Dioxide 22 mmol/L (23-31); Chloride 103 mmol/L (98-107); Estimated GFR-MDRD 66; Glucose 113 mg/dL (83-110); Potassium 3.3 mmol/L (3.5-5.1); Protein, Total 5.9 g/dL (5.8-8.1); Sodium 132 mmol/L (136-145)
[2019-12-22] MEDS: Famotidine 20 MG TAB PO SCH (08:01)
[2019-12-22] MEDS: Enoxaparin Sodium 30 MG/0.3 ML SYRINGE SC SCH (08:01)
[2019-12-22] MEDS: NIFEdipine XL 90 MG TAB PO SCH (08:01)
[2019-12-22] MEDS ORDERED: Potassium Chloride 20 MEQ TAB PO SCH (08:30)
[2019-12-22] MEDS: cefTRIAXone\\ROCEPHIN 2 GM in Sodium Chloride 0.9% 100 ML IVPB SCH (15:41)
--- NOTE | 2019-12-22 17:33 | PRG ---
DATE OF SERVICE: 12/22/2019 SUBJECTIVE: Mr. Dhillon states he is somewhat fatigued after walking around the room quite a bit. He is tolerating clear liquid. He had no chills last night. OBJECTIVE: VITAL SIGNS: Temperature 98, pulse 86, blood pressure 103/61. HEENT: He is mildly icteric. LUNGS: Clear. ABDOMEN: Nontender. LABORATORY DATA: White count 9, hemoglobin 9.5, platelet count is 114. INR is 1.1. Sodium 132, potassium 3.3, bilirubin 4.5, direct 3.8. AST and ALT 104 and 116, alkaline phosphatase 348. Blood culture shows Klebsiella oxytoca pansensitive. ASSESSMENT AND PLAN: Likely ascending cholangitis related to cholangiocarcinoma. He has had previous non-coated stent placed in the left hepatic ductal system. There does not appear to be any occlusion of this at this time. This is likely related to tumor. His CA-19-9 is a little bit higher at this time that could be related to tumor or infection. I have talked with his interventional gastrologist who performed the endoscopic retrograde cholangiopancreatography with spyglass and placed the stent and he recommended at this point in time he is treating with 14 days of antibiotics and fluids, not embarking on repeat endoscopic retrograde cholangiopancreatography at this time in light of the CT scan findings. We will plan hopefully to morning, switch to oral antibiotics and go home to finish a 14-day course of antibiotics with Levaquin and have short-term followup with me in the office later this week with preclinic labs. Job ID: [id number]
[2019-12-23 06:42] LABS: #Eosinphils 0.1 thou/uL (0.0-0.7); #Lymphocytes 1.1 thou/uL (1.20-3.40); #Monocytes 0.2 thou/uL (0.11-0.59); #Neutrophils 3.6 thou/uL (1.40-6.50); %Basophils 0.3 % (0.0-1.0); %Eosinophils 1.6 % (0.0-10.0); %Lymphocytes 21.1 % (21.0-51.0); %Monocytes 4.8 % (0.0-10.0); %Neutrophils 72.1 % (42.0-75.0); Hemoglobin 9.4 g/dL (14.0-18.0); Mean Corpuscular HGB CONC 33.6 g/dL (32.0-36.0); Mean Corpuscular Hemoglobin 32.2 pg (27.0-31.0); Mean Corpuscular Volume 95.9 fL (78.0-98.0); Mean Platelet Volume 9.1 fL (7.4-10.4); Platelet Count 124 thou/uL (130-400); RBC Distribution Width 14.4 % (11.5-14.5); Red Blood Cell (RBC) Count 2.91 mill/uL (4.70-6.10)
[2019-12-23 06:56] LABS: ALT (SGPT) 116 U/L (8-55); AST (SGOT) 116 U/L (5-34); Albumin 2.8 g/dL (3.4-4.8); Alkaline Phosphatase 484 U/L (40-110); Anion Gap 11 mmol/L (10-20); BUN (Urea Nitrogen) 15 mg/dL (8.4-25.7); Bilirubin, Direct 5.6 mg/dL (0.1-0.3); Bilirubin, Total 7.7 mg/dL (0.2-1.2); Calc. Creatinine Clearance 70 mL/min (70-130); Calcium 8.2 mg/dL (7.8-10.44); Carbon Dioxide 24 mmol/L (23-31); Chloride 103 mmol/L (98-107); Estimated GFR-MDRD 75; Glucose 102 mg/dL (83-110); Potassium 3.7 mmol/L (3.5-5.1); Sodium 134 mmol/L (136-145)
[2019-12-23] MEDS: Famotidine 20 MG TAB PO SCH (08:21)
[2019-12-23] MEDS: NIFEdipine XL 90 MG TAB PO SCH (08:21)
[2019-12-23] MEDS: Enoxaparin Sodium 30 MG/0.3 ML SYRINGE SC SCH (08:22)
--- NOTE | 2019-12-23 08:23 | PDOC.HOSPP ---
- Subjective Encounter Date: 12/22/19 Encounter Time: 15:20 Subjective: Patient seen and examined for Cholangitis/bacteremia. Mild nausea. No new complaints. No overnight events - Objective Vital Signs & Weight: Vital Signs (12 hours) Temp Pulse Resp BP Pulse Ox 12/23/19 08:00 98.0 F 96 18 122/76 98 Weight Weight 165 lb 4.8 oz I&O: 12/22/19 12/23/19 12/24/19 06:59 06:59 06:59 Intake Total 2220 Balance 2220 Result Diagrams: 12/23/19 06:10 12/23/19 06:10 Additional Labs: Accuchecks 12/23/19 12/22/19 12/22/19 04:22 19:42 16:25 POC Glucose 120 H 147 H 188 H 12/22/19 11:42 POC Glucose 137 H Hospitalist ROS - Review of Systems Respiratory: denies: cough, dry, shortness of breath, hemoptysis, SOB with excertion, pleuritic pain, sputum, wheezing, other Cardiovascular: denies: chest pain, palpitations, orthopnea, paroxysmal noc. dyspnea, edema, light headedness, other - Medication Medications: Active Medications Generic Name Dose Route Start Last Admin Trade Name Freq PRN Reason Stop Dose Admin Acetaminophen 325 mg 12/20/19 15:45 12/21/19 20:42 Tylenol PO 325 mg Q6H PRN Administration Headache/Fever or Pain Enoxaparin Sodium 30 mg 12/21/19 09:00 12/22/19 08:01 Lovenox SC 30 mg 0900 YULISA Administration Famotidine 20 mg 12/21/19 09:00 12/22/19 08:01 Pepcid PO 20 mg DAILY YULISA Administration Potassium Chloride/Sodium Chloride 1,000 ml in 1,000 mls @ 75 mls/hr 12/21/19 14:36 12/22/19 20:19 Ns 0.9% W/ 20 Meq Kcl IV 1,000 mls .[id number] YULISA Administration Ceftriaxone Sodium 2 gm/ 100 mls @ 200 mls/hr 12/22/19 16:00 12/22/19 15:41 Sodium Chloride IVPB 100 mls Q24HR YULISA Administration Insulin Human Regular 0 units 12/20/19 17:31 12/21/19 12:32 Humulin R SC 5 unit .MILD SLIDING SCALE PRN Administration Mild Correctional Scale Nifedipine 90 mg 12/21/19 09:00 12/22/19 08:01 Procardia Xl PO 90 mg QAM YULISA Administration - Exam General Appearance: NAD Heart: RRR, no gallops Respiratory: no wheezes, no ronchi Gastrointestinal: non-tender, normal bowel sounds Extremities: no cyanosis Neurological: no new deficit Hosp A/P - Plan DVT proph w/SCDs 1. Cholangitis with bacteremia 2. Cholangiocarcinoma, on chemotherapy. 3. Hypertension. 4. Hyperlipidemia. 5. Impaired glucose tolerance. 6. Right-sided nephrolithiasis. 7. L3 Osteolytic lesion - no need for TLSO per NSG 8. History of urinary retention with previous surgery. 9. Chronic kidney disease, stage 3. 10. Hypomagnesemia. PLAN: Cont Meropenem wiht IVF Advance diet Ambulate CMP in AM Case d/w Dr Sandy Cont other meds as above
[2019-12-23] MEDS: NS 0.9% w/ 20 MEQ KCL 1,000 ML/1,000 ML BAG IV SCH ×2 (10:30→23:45)
[2019-12-23] MEDS ORDERED: Magnevist 469MG/ML 20 ML VIAL ONE (13:35)
[2019-12-23] MEDS: cefTRIAXone\\ROCEPHIN 2 GM in Sodium Chloride 0.9% 100 ML IVPB SCH (15:53)
--- NOTE | 2019-12-23 20:02 | CON ---
DATE OF CONSULTATION: HISTORY OF PRESENT ILLNESS: Mr. Parsons is feeling fine. Plan was for him to go home today. LFTs bumped. MRI was read preliminary by Dr. Carmona, same possible debris or clot in the distal aspect of the Wallstent. Again, he is without complaints. OBJECTIVE: VITAL SIGNS: Temperature is 98, pulse 88, and blood pressure 103/68. ABDOMEN: Soft, nontender. HEENT: He is mildly icteric. EXTREMITIES: He has no edema. LABORATORY DATA: White count 5, hemoglobin 9.4, and platelet count 124. Sodium 134, potassium 3.7, BUN and creatinine of 15 and 0.97. Bilirubin is 7.7, up from 5.4 yesterday, was 6 on admission. AST is 116, ALT is 116, alk phos 484, going up. ASSESSMENT: Persistently elevated liver enzymes. This could represent the malignancy and advancement as CT showed what appeared to be more disease on his most recent staging study, similar to CT on 12/18. This also could be related to stent occlusion. Dr. Carmona is going to have one of the body images look at his MRI tomorrow. There was some motion artifact that made it difficult. I am going to schedule him for an ERCP tomorrow to make sure the stent is not clogged up with debris in light of the MRI. He will need to stay in the hospital for that. Job ID: [id number]
--- NOTE | 2019-12-23 20:03 | PDOC.HOSPP ---
- Subjective Encounter Date: 12/23/19 Encounter Time: 10:30 Subjective: Patient seen and examined for Cholangitis. Feels the same. No fever/chills/Abd pain/N/V. No new complaints. No overnight events - Objective Vital Signs & Weight: Vital Signs (12 hours) Temp Pulse Resp BP BP Pulse Ox 12/23/19 16:00 97.9 F 82 18 117/79 98 12/23/19 11:00 98.3 F 88 20 103/68 98 12/23/19 08:21 96 122/76 Weight Weight 165 lb 4.8 oz I&O: 12/22/19 12/23/19 12/24/19 06:59 06:59 06:59 Intake Total 2220 1790 Balance 2220 1790 Result Diagrams: 12/24/19 05:55 12/24/19 05:55 Additional Labs: Accuchecks 12/23/19 12/23/19 12/23/19 16:41 11:34 04:22 POC Glucose 135 H 256 H 120 H 12/22/19 19:42 POC Glucose 147 H Hospitalist ROS - Review of Systems Respiratory: denies: cough, dry, shortness of breath, hemoptysis, SOB with excertion, pleuritic pain, sputum, wheezing, other Cardiovascular: denies: chest pain, palpitations, orthopnea, paroxysmal noc. dyspnea, edema, light headedness, other - Medication Medications: Active Medications Generic Name Dose Route Start Last Admin Trade Name Freq PRN Reason Stop Dose Admin Acetaminophen 325 mg 12/20/19 15:45 12/21/19 20:42 Tylenol PO 325 mg Q6H PRN Administration Headache/Fever or Pain Enoxaparin Sodium 30 mg 12/21/19 09:00 12/23/19 08:22 Lovenox SC 30 mg 0900 YULISA Administration Famotidine 20 mg 12/21/19 09:00 12/23/19 08:21 Pepcid PO 20 mg DAILY YULISA Administration Potassium Chloride/Sodium Chloride 1,000 ml in 1,000 mls @ 75 mls/hr 12/21/19 14:36 12/23/19 10:30 Ns 0.9% W/ 20 Meq Kcl IV 1,000 mls .[id number] YULISA Administration Ceftriaxone Sodium 2 gm/ 100 mls @ 200 mls/hr 12/22/19 16:00 12/23/19 15:53 Sodium Chloride IVPB 100 mls Q24HR YULISA Administration Insulin Human Regular 0 units 12/20/19 17:31 12/21/19 12:32 Humulin R SC 5 unit .MILD SLIDING SCALE PRN Administration Mild Correctional Scale Nifedipine 90 mg 12/21/19 09:00 12/23/19 08:21 Procardia Xl PO 90 mg QAM YULISA Administration - Exam General Appearance: NAD Neck: supple, no JVD Heart: RRR, no gallops Respiratory: no wheezes, no ronchi Gastrointestinal: non-tender, normal bowel sounds Extremities: no cyanosis Neurological: no new deficit Hosp A/P - Plan DVT proph w/SCDs 1. Cholangitis with bacteremia 2. Cholangiocarcinoma, on chemotherapy. 3. Hypertension. 4. Hyperlipidemia. 5. Impaired glucose tolerance. 6. Right-sided nephrolithiasis. 7. L3 Osteolytic lesion - no need for TLSO per NSG 8. History of urinary retention with previous surgery. 9. Chronic kidney disease, stage 3. 10. Hypomagnesemia. PLAN: Cont Meropenem MRCP today LFTs in AM Cont other meds as above
[2019-12-24 06:12] LABS: #Lymphocytes 1.1 thou/uL (1.20-3.40); #Monocytes 0.3 thou/uL (0.11-0.59); #Neutrophils 1.1 thou/uL (1.40-6.50); %Eosinophils 1.7 % (0.0-10.0); %Lymphocytes 43.1 % (21.0-51.0); %Monocytes 12.5 % (0.0-10.0); %Neutrophils 41.7 % (42.0-75.0); Hemoglobin 9.1 g/dL (14.0-18.0); Mean Corpuscular HGB CONC 34.5 g/dL (32.0-36.0); Mean Corpuscular Hemoglobin 32.9 pg (27.0-31.0); Mean Corpuscular Volume 95.4 fL (78.0-98.0); Mean Platelet Volume 9.4 fL (7.4-10.4); Platelet Count 102 thou/uL (130-400); RBC Distribution Width 14.5 % (11.5-14.5); Red Blood Cell (RBC) Count 2.77 mill/uL (4.70-6.10); White Blood Cell (WBC) Count 2.6 thou/uL (4.8-10.8)
[2019-12-24 06:32] LABS: ALT (SGPT) 133 U/L (8-55); AST (SGOT) 142 U/L (5-34); Albumin 2.9 g/dL (3.4-4.8); Alkaline Phosphatase 583 U/L (40-110); Anion Gap 11 mmol/L (10-20); BUN (Urea Nitrogen) 16 mg/dL (8.4-25.7); Bilirubin, Total 10.9 mg/dL (0.2-1.2); Calc. Creatinine Clearance 79 mL/min (70-130); Calcium 8.4 mg/dL (7.8-10.44); Carbon Dioxide 24 mmol/L (23-31); Chloride 103 mmol/L (98-107); Estimated GFR-MDRD 87; Globulin 3.2 g/dL (2.4-3.5); Glucose 100 mg/dL (83-110); Lipase 18 U/L (8-78); Potassium 3.7 mmol/L (3.5-5.1); Protein, Total 6.1 g/dL (5.8-8.1); Sodium 134 mmol/L (136-145)
[2019-12-24] MEDS: NIFEdipine XL 90 MG TAB PO SCH (08:35)
[2019-12-24] MEDS: Famotidine 20 MG TAB PO SCH (08:35)
--- NOTE | 2019-12-24 08:59 | MRI ---
MRI OF THE ABDOMEN WITHOUT AND WITH CONTRAST: COMPARISON: CT abdomen/pelvis 12/19/2019 and MRI of the abdomen 07/24/2019. TECHNIQUE: Multiplanar, multisequence MRI images were obtained of the abdomen without and with IV contrast. MRC P images were also performed. FINDINGS: The gallbladder has been removed. There is a stent in the common bile duct. There is mild central i ntrahepatic biliary dilatation. There is a 1.7 cm well-circumscribed focus of high T2 signal in the right lobe of the liver adjacent to the stent. This does not demonstrate definite enhancement on the postcontrast images and likely r epresents a simple cyst. There is possible enhancement surrounding the intrahepatic portion of the b iliary stent. Evaluation is limited secondary to metallic artifact. No definite enhancement extends into the right lobe of the liver. There is a cyst in the right kidney measures 3.1 cm in size. The left kidney, adrenal glands, spleen , and pancreas are unremarkable. No retroperitoneal adenopathy is seen. No abdominal adenopathy is seen. No marrow signal abnormality is present. IMPRESSION: 1. There is appropriate position of a metallic stent in the right lobe of the liver. There is minim al central intrahepatic biliary dilatation. 2. There appears to be subtle enhancement surrounding the stent which could represent cholangiocarci noma in the region of the chay hepatis/[place] tumor. 3. Simple cyst in the right lobe of the liver. No definite enhancement extends into the right lobe of the liver. There is capsular retraction which may represent postsurgical change. 4. Right renal cyst. POS: C
[2019-12-24] MEDS ORDERED: Succinylcholine Chloride 20 MG/ML 10 ml SYRINGE FS ONE (09:00)
[2019-12-24] MEDS ORDERED: Lidocaine 1% PF 5 ML VIAL ONE (09:00)
[2019-12-24] MEDS ORDERED: PROPOFOL 200 MG/20 ML VIAL ONE (09:00)
[2019-12-24] MEDS ORDERED: Ondansetron PF 4 MG/2 ML Vial ONE (09:00)
[2019-12-24] MEDS ORDERED: Fentanyl 100 MCG/2 ML VIAL ONE (11:42)
[2019-12-24] MEDS ORDERED: Iothalamate Meglumine 60% 50 ML VIAL FS ONE (11:45)
[2019-12-24] MEDS ORDERED: Indomethacin 50 MG SUPP ONE (11:45)
--- NOTE | 2019-12-24 13:00 | RAD ---
Exam: Intraoperative fluoroscopy for ERCP Comparison 08/02/2019 HISTORY: Biliary stones FINDINGS: 7 intraprocedure fluoroscopic images demonstrate retrograde opacification of the biliary sy stem. The intrahepatic biliary system does not appear to be distended. Balloon is placed in the common bile duct. Final images demonstrate a common bile duct stent. IMPRESSION: Intraoperative fluoroscopy as above
[2019-12-24] MEDS ORDERED: Promethazine HCl 25 MG/ML VIAL SLOW IVP PRN (13:14)
[2019-12-24] MEDS ORDERED: Ondansetron HCl/PF 4 MG/2 ML Vial IVP PRN (13:14)
[2019-12-24] MEDS ORDERED: Promethazine HCl 25 MG/ML VIAL IM PRN (13:14)
[2019-12-24] MEDS ORDERED: Morphine Sulfate 2 MG/ML SYRINGE SLOW IVP PRN (13:14)
--- NOTE | 2019-12-24 15:09 | ULT ---
RIGHT UPPER EXTREMITY VENOUS DOPPLER ULTRASOUND: DATE: 12/24/2019. COMPARISON: None. HISTORY: Swollen right upper extremity, Port-A-Cath, bacteremia. TECHNIQUE: Multiplanar, pandya scale, sonographic imaging of the venous structures of the right upper extremity ob tained with color flow and spectral analysis. FINDINGS: The right internal jugular vein is expanded and filled with hypoechoic clot. There is a vascular cat heter within the right internal jugular vein as well. The right subclavian vein is expanded and fill ed with hypoechoic clot as is the right axillary vein. The clot extends into the right brachial vein in the cephalad aspect of the right upper arm. The right cephalic vein, basilic vein, radial vein, a nd ulnar vein are patent. IMPRESSION: Extensive deep venous thrombosis of the right upper extremity including hypoechoic clot filling and e xpanding the right internal jugular vein, axillary vein, and subclavian vein. The performing injection molding machine offbearer, Nicolasa, relayed this information to the covering RN, Reyna, at the time o f the examination on 12/24/2019. CODE CR POS: [facility]
--- NOTE | 2019-12-24 15:19 | OP ---
DATE OF PROCEDURE: 12/24/2019 PROCEDURE PERFORMED: Endoscopic retrograde cholangiopancreatography with placement of stent. PREPROCEDURE DIAGNOSES: 1. Cholangiocarcinoma. 2. Previous placement of a 10 mm x 10 cm uncoated Wallstent into the left hepatobiliary system. 3. The patient has started chemotherapy. He did not have surgery secondary to having isolated L3 bone mets. 4. The patient was admitted with cholangitis with fever and positive blood cultures for Klebsiella pansensitive. 5. With ongoing antibiotics and IV fluids, the bilirubin has climbed from admission. MRCP yesterday raised concern for debris inside the stent both proximally and distally. Hemoglobin has dropped from 11.1 to 9.1. Bilirubin was 1.8 on 12/11, 7.8 on 12/18, got 4.9 on 12/20, and is 10.9 today. AST, ALT slowly increased since admission from 60 to 140 and ALT from 80 to 133. Alkaline phosphatase reaching a high of 798 before stent placed on 08/04 have been 437 on admission, now climbing last two days to 583. CA-19-9 was 168 on 10/08 and 310 on 12/18. POSTPROCEDURE DIAGNOSES: 1. Stent shows signs of bile and debris on it distally. No bile was draining from the tube. The stent was swept first in the distal portion with a 12 mm balloon with a little bit of debris coming out, but not much. Still no bile flow. It was then swept with the same balloon from the proximal aspect of the stent and some blood and old bile came out. No tissue. It was then swept from just above its proximal insertion point, taking care not to move the stent while we did that and again it came through with lot of resistance, but a lot of blood. This raises concern for tumor ingrowth. 2. Still after the above, there was no drainage of bile spontaneously. A limited cholangiogram was performed, showing a pretty patent duct distally, but very narrow column of contrast in the proximal stent and had been filling in the left intrahepatic ductal system, at which time we really did stop injecting to not overfill. This is consistent with hemobilia and tumor ingrowth. 3. A 15 cm, 11.5-Jordanian stent was placed across the previous metal stent that extends just proximal aspect of the metal stent fortunately with a sharp curve in the left hepatobiliary system, we could not get it up around that corner. There was contrast drainage both endoscopically and radiographically afterwards. 4. He had mild Sharmin in the distal esophagus. RECOMMENDATIONS: 1. We will talk with Dr. Constantine Rosales in [place] to see if there is any other interventional options at this time other than a PTC. 2. Continue antibiotics. 3. We will place on Diflucan orally when he has no symptoms. ANESTHESIA: General endotracheal anesthesia. PROCEDURE IN DETAIL: After the patient was informed of the risks, benefits, and possible complications of endoscopy including perforation, reaction to medication, and aspiration, informed consent was obtained and the patient was brought to the endoscopy suite, where he was sedated in a standard fashion. Once he was comfortable, he was intubated and then placed in prone position on the fluoroscopy table. Prior to the procedure, explained to the patient and the patient's daughter and anesthesia indication for procedure that is cholangiocarcinoma with known stricture, admission with cholangitis, positive blood cultures, and rising bilirubin and alkaline phosphatase suggestive of ongoing biliary obstruction. Informed consent was obtained. While the patient was then positioned on the table, a side-viewing duodenoscope was advanced to the esophagus, stomach and second and third portions of the duodenum. The ampulla was brought into view. There was some mild adherent white plaques in the distal esophagus, small amount consistent with very mild Sharmin in the esophagus. The stent itself look pretty normal coming out of the distal aspect of the bile duct. There was some debris there. There was no clot or blood, but there was no free flow of bile. At this point in time, we used a biliary balloon 12 mm and brought into the distal third of the stent and inflated and swept the duct with really not much return or resistance. This was then done from the middle third through the whole duct again with no real removing of much debris or resistance and then we did in the very proximal aspect of the stent. There was some mild resistance here, but it really pulled down pretty easily. All of blood and debris came out. This was mainly old blood, some fresh, a little bit of tissue, a little bit of bile. No pus was seen. We did this taking care not to disrupt or displace the stent that was in place. It did not migrate and there was really not much resistance. The balloon was able to be pulled through hole and then we did just above the stent again with the same results. After this, there still was no flow of bile, so a small amount of contrast was injected showing a good filling of the stent with contrast except from the proximal probably of 3 cm. There was not very good filling in the stent. It looked like the column of contrast was very thin and erratic. There was filling of the intrahepatic ducts. At this time, the wire was placed up all the way into the right hepatic ductal system and a 15 mm plastic stent was deployed with its proximal aspect just above the metallic stent that was in place. It could not be deployed further up as we could not get the guide catheter to get up around the corner any further. I did not have any non-coated metal stents here to use as this bridged the chay hepatis coated stent effectively completely closing off the right ductal system. After this, there was some contrast drainage and there was also drainage of bile noted. No blood was noted coming from plastic stent. Everything was removed at that point in time and postprocedure films were obtained. My concern at this point is that this plastic stent could be occluded soon with either blood from hemobilia or tumor. We will talk with Dr. Rosales to see if there is any other endoscopic options before resorting to PTC. Presently, he is hemodynamically stable, so we can wait for a couple of days and see what his bile level does after the stent was placed. I think this could be a short-term patch if it is effective at all. Job ID: [id number]
[2019-12-24 16:33] LABS: Prothrombin Time 13.5 SEC (12.0-14.7)
--- NOTE | 2019-12-24 17:19 | PDOC.EVN ---
Event Note - Event Note Event Note: RUQ doppler - extensive DVT. Will start Lovenox 1 mg/kg Q12h Cristopher ed/w Dr Sandy and Dr Orellana
--- NOTE | 2019-12-24 17:50 | CON ---
DATE OF CONSULTATION: REASON FOR CONSULTATION: Cholangiocarcinoma. HISTORY OF PRESENT ILLNESS: Mr. 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 In July, he underwent ERCP, which showed a high-grade stricture in the proximal common hepatic duct. Metal stent was placed and biopsy confirmed cholangiocarcinoma. He underwent staging scans and had a 2.8 cm hypodense mass in the chay hepatis region. There was a 1.5 cm enhancing lytic lesion in the lateral aspect of L3. He was started on chemotherapy consisting of Platinol and Gemzar. He has completed 2 cycles. His bilirubin has been stable at 1.8 until about a week ago when it climbed to 7.8. He was to follow up with Dr. Sandy over the weekend, however, he began to have chills with fever and was sent to the emergency room. He was found to have Klebsiella in his blood cultures, started on empiric antibiotics and admitted. He was stable to be discharged home. Unfortunately, his bilirubin continued to climb to 10.9 today. He also had some swelling in his right upper extremity. The vascular ultrasound showed a DVT of the right upper extremity including hypoechoic clot filling and expanding of the right internal jugular vein, axillary vein, and subclavian vein. He also underwent an ERCP today with stent placement. He was seen at bedside, currently eating a full liquid diet. He has no complaints of pain. PAST MEDICAL HISTORY: 1. Invasive poorly-differentiated cholangiocarcinoma with metastasis to the lumbar spine. 2. Hypertension. 3. Diabetes. 4. Chronic anemia. 5. Cataracts. 6. Cholelithiasis. PAST SURGICAL HISTORY: 1. EGD and colonoscopy. 2. ERCP. 3. Vasectomy. 4. Hernia repair. 5. Lumbar spine biopsy. 6. Cholecystectomy. ALLERGIES: TO ZOSYN AND TAZOBACTAM. HOME MEDICATIONS: 1. Levemir. 2. Losartan. 3. Nifedipine. FAMILY HISTORY: SOCIAL HISTORY: . Has one child. Lives alone. No alcohol, tobacco, or illicit drug use. REVIEW OF SYSTEMS: A 10-point review of systems is negative. PHYSICAL EXAMINATION: VITAL SIGNS: Temperature is 98.1, pulse is 82, respiratory rate 18, blood pressure is 138/81, and he is 98% on room air. GENERAL: This is a well-developed, well-nourished male, in no acute distress. HEENT: Normocephalic, atraumatic. Sclerae are icterus. CV: Regular rate and rhythm. LUNGS: Clear. ABDOMEN: Soft and nontender. Bowel sounds are positive. EXTREMITIES: No clubbing or cyanosis. SKIN: Positive for jaundice. NEUROLOGIC: Nonfocal. PERTINENT LABORATORY DATA AND DIAGNOSTIC STUDIES: Current WBCs are 2.6, hemoglobin 9.1, hematocrit 26.4, platelet count is 102,000, 41% neutrophils, 43% lymphocytes. PT is 14.2, INR is 1.1, and PTT is 27.1. Sodium 134, potassium 3.7, chloride 103, CO2 is 24, BUN is 16, creatinine 0.86, calcium 8.4, bilirubin 10.9, AST is 142, ALT is 133, alkaline phosphatase is 583, serum total protein is 6.1, albumin 2.9, globulin 3.2. Radiology per HPI. ASSESSMENT: 1. Metastatic cholangiocarcinoma. 2. Right upper extremity deep venous thrombosis. 3. Hyperbilirubinemia, status post stent replacement. DISCUSSION: The patient remains remarkably asymptomatic from his cholangiocarcinoma. He denies any pain at this time. He is tolerating a diet. He has returned from a procedure this a.m. and now has been found to have a right upper extremity DVT. We would recommend starting anticoagulation with either Xarelto or Eliquis once he has been cleared by GI to start. Hopefully, his bilirubin will improve in the next 24 hours and he can be discharged home. His next treatment is on January 01. Thank you for the consult. We will follow along with his hospitalization. Job ID: [id number]
[2019-12-24] MEDS: NS 0.9% w/ 20 MEQ KCL 1,000 ML/1,000 ML BAG IV SCH (17:51)
[2019-12-24] MEDS: cefTRIAXone\\ROCEPHIN 2 GM in Sodium Chloride 0.9% 100 ML IVPB SCH (17:51)
[2019-12-24] MEDS: Enoxaparin Sodium 80 MG/0.8 ML SYRINGE SC SCH (17:53)
[2019-12-24] MEDS: Ursodiol 300 MG CAP PO SCH (17:56)
--- NOTE | 2019-12-24 19:31 | PDOC.HOSPP ---
- Subjective Encounter Date: 12/24/19 Encounter Time: 14:00 Subjective: Patient seen and examined for Bacteremia. s/p ERCP today. New onset RUE swelling since this AM. No other complaints. No overnight events - Objective Vital Signs & Weight: Vital Signs (12 hours) Temp Pulse Resp BP BP Pulse Ox 12/24/19 16:53 97.5 F L 83 18 132/84 97 12/24/19 08:35 82 138/81 12/24/19 08:00 98 12/24/19 07:40 98.1 F 78 18 148/82 H 98 Weight Weight 165 lb 4.8 oz I&O: 12/23/19 12/24/19 12/25/19 06:59 06:59 06:59 Intake Total 2220 3170 Balance 2220 3170 Result Diagrams: 12/24/19 05:55 12/24/19 05:55 Additional Labs: Accuchecks 12/24/19 12/24/19 12/24/19 16:54 13:51 03:57 POC Glucose 314 H 125 H 111 H 12/23/19 20:26 POC Glucose 163 H Hospitalist ROS - Review of Systems Respiratory: denies: cough, dry, shortness of breath, hemoptysis, SOB with excertion, pleuritic pain, sputum, wheezing, other Cardiovascular: denies: chest pain, palpitations, orthopnea, paroxysmal noc. dyspnea, edema, light headedness, other - Medication Medications: Active Medications Generic Name Dose Route Start Last Admin Trade Name Freq PRN Reason Stop Dose Admin Acetaminophen 325 mg 12/20/19 15:45 12/21/19 20:42 Tylenol PO 325 mg Q6H PRN Administration Headache/Fever or Pain Enoxaparin Sodium 70 mg 12/24/19 17:00 12/24/19 17:53 Lovenox SC 70 mg 0500,1700 YULISA Administration Famotidine 20 mg 12/21/19 09:00 12/24/19 08:35 Pepcid PO 20 mg DAILY YULISA Administration Potassium Chloride/Sodium Chloride 1,000 ml in 1,000 mls @ 75 mls/hr 12/21/19 14:36 12/24/19 17:51 Ns 0.9% W/ 20 Meq Kcl IV 1,000 mls .[id number] YULISA Administration Ceftriaxone Sodium 2 gm/ 100 mls @ 200 mls/hr 12/22/19 16:00 12/24/19 17:51 Sodium Chloride IVPB 100 mls Q24HR YULISA Administration Insulin Human Regular 0 units 12/20/19 17:31 12/21/19 12:32 Humulin R SC 5 unit .MILD SLIDING SCALE PRN Administration Mild Correctional Scale Nifedipine 90 mg 12/21/19 09:00 12/24/19 08:35 Procardia Xl PO 90 mg QAM YULISA Administration Ursodiol 300 mg 12/24/19 17:00 12/24/19 17:56 Actigal PO 300 mg TID-WM YULISA Administration - Exam General Appearance: NAD Neck: supple, no JVD Heart: RRR, no gallops Respiratory: CTAB, no rales, no ronchi Gastrointestinal: soft, non-tender, normal bowel sounds Extremities: no cyanosis Extremities - other findings: RUE swelling + Neurological: no new deficit Hosp A/P - Plan DVT proph w/SCDs 1. Cholangitis with bacteremia 2. Cholangiocarcinoma, on chemotherapy. 3. Hypertension. 4. Hyperlipidemia. 5. Impaired glucose tolerance. 6. Right-sided nephrolithiasis. 7. L3 Osteolytic lesion - no need for TLSO per NSG 8. History of urinary retention with previous surgery. 9. Chronic kidney disease, stage 3. 10. Hypomagnesemia. 11. Esophageal Candidiasis PLAN: Cont Meropenem s/p ERCP AM labs RUE USG to r/o DVT LFTs in AM Start Fluconazole when ok with GI Cont other meds as above
[2019-12-24] MEDS ORDERED: Enoxaparin Sodium 80 MG/0.8 ML SYRINGE SC SCH (21:00)
[2019-12-25] MEDS: NS 0.9% w/ 20 MEQ KCL 1,000 ML/1,000 ML BAG IV SCH ×2 (00:05→17:11)
[2019-12-25] MEDS: Enoxaparin Sodium 80 MG/0.8 ML SYRINGE SC SCH ×2 (05:26→17:10)
[2019-12-25 05:52] LABS: #Lymphocytes 1.2 thou/uL (1.20-3.40); #Monocytes 0.4 thou/uL (0.11-0.59); #Neutrophils 2.9 thou/uL (1.40-6.50); %Basophils 0.9 % (0.0-1.0); %Lymphocytes 25.9 % (21.0-51.0); %Monocytes 9.6 % (0.0-10.0); %Neutrophils 62.6 % (42.0-75.0); Hemoglobin 9.1 g/dL (14.0-18.0); Mean Corpuscular HGB CONC 34.2 g/dL (32.0-36.0); Mean Corpuscular Hemoglobin 32.8 pg (27.0-31.0); Mean Platelet Volume 10.1 fL (7.4-10.4); Platelet Count 81 thou/uL (130-400); RBC Distribution Width 14.7 % (11.5-14.5); Red Blood Cell (RBC) Count 2.76 mill/uL (4.70-6.10); White Blood Cell (WBC) Count 4.6 thou/uL (4.8-10.8)
[2019-12-25 06:12] LABS: ALT (SGPT) 130 U/L (8-55); AST (SGOT) 118 U/L (5-34); Albumin 2.8 g/dL (3.4-4.8); Alkaline Phosphatase 593 U/L (40-110); Anion Gap 12 mmol/L (10-20); BUN (Urea Nitrogen) 14 mg/dL (8.4-25.7); Bilirubin, Direct 4.5 mg/dL (0.1-0.3); Bilirubin, Total 6.9 mg/dL (0.2-1.2); Calc. Creatinine Clearance 76 mL/min (70-130); Calcium 8.2 mg/dL (7.8-10.44); Carbon Dioxide 24 mmol/L (23-31); Chloride 105 mmol/L (98-107); Estimated GFR-MDRD 83; Glucose 98 mg/dL (83-110); Magnesium 1.2 mg/dL (1.6-2.6); Protein, Total 6.4 g/dL (5.8-8.1); Sodium 137 mmol/L (136-145)
[2019-12-25] MEDS: NIFEdipine XL 90 MG TAB PO SCH (08:15)
[2019-12-25] MEDS: Famotidine 20 MG TAB PO SCH (08:15)
[2019-12-25] MEDS: Ursodiol 300 MG CAP PO SCH ×3 (08:15→17:10)
[2019-12-25] MEDS: Acetaminophen 325 MG TAB PO PRN (08:18)
[2019-12-25] MEDS ORDERED: Magnesium Sulfate 4 GM in Sodium Chloride 0.9% 250 ML 250 ML IVPB SCH (09:00)
--- NOTE | 2019-12-25 16:52 | CON ---
DATE OF CONSULTATION: 12/25/2019 REASON FOR CONSULTATION: Bacteremia. HISTORY OF PRESENT ILLNESS: A 74-year-old with a history of type 2 diabetes mellitus and hypertension, who was seen by Dr. Ambrosio in his office on July 17, 2019, for epigastric pain as well as right upper quadrant pain, which was intermittent. The ultrasound showed gallstones and he had elevated transaminases and alkaline phosphatase. So, he was admitted and had a cholecystectomy carried out on July 23. The findings include gangrenous changes in the gallbladder with purulent material in the fundus of the gallbladder. There was a lot of adhesions and a complete dissection was not performed because of risk. A drain was left in place and no cultures were obtained at that time. The patient was discharged on oral antimicrobial therapy and because of worsening of jaundice, he had a HIDA scan on August 01, 2019, which demonstrated high-grade biliary obstruction, so on August 02, he underwent ERCP by Dr. Chou and there was evidence of high-grade biliary stenosis and stricture in the proximal common hepatic duct and a stent was placed. There were some ulcerations seen in the distal gastric body. Dr. Sandy followed up for the next day and was concerned of possibility of either complications of severe cholecystitis or a neoplastic process in the chay hepatis and the documentation in the record jumps now to the more recent events and most likely he was probably referred to a tertiary center where the biopsy showed a cholangiocarcinoma at the chay hepatis and the patient had a metal stent placed and has been started on chemotherapy through a port localized in the right subclavian position. He is referred for admission because of abnormal liver function tests and associated with fever on December 19. The bilirubin had increased to 9 from the previous levels and the CT scan showed a small hypodense lesion, which mildly enhanced in the adjacent liver parenchyma concerning for regional spread of the malignancy, although the degree of intrahepatic biliary ductal dilatation was stable. By then, he was known to have metastases, I believe, to the spine and he underwent a repeat ERCP with attempts at this obstructing the metallic stent, but that was not successful, so the another stent was placed through the metallic stent and has achieved drainage. The patient currently actually looks pretty well. He denies headaches. No visual symptoms, sore throat, odynophagia, or dysphagia. No cough or sputum production. No chest pain. Has chronic neck pain, which is unchanged. No shoulder pain. No abdominal pain or tenderness. Voiding without difficulty. No diarrhea. No joint symptoms. No neurological symptoms. PAST MEDICAL HISTORY: Hypertension, type 2 diabetes, cholangiocarcinoma, port placement, cholecystectomy, metastatic cholangiocarcinoma to bone, ERCP, chemotherapy. ALLERGIES: SULFA AND ZOSYN REPORTEDLY. CURRENT MEDICATIONS: 1. Tylenol. 2. Tums. 3. Ceftriaxone. 4. Lovenox. 5. Pepcid. 6. Glucagon. 7. Apresoline. 8. Insulin. 9. Procardia. 10. Zofran. 11. Actigall. FAMILY HISTORY: Noncontributory. SOCIAL HISTORY: He works as a larson. Never smoker. PHYSICAL EXAMINATION: VITAL SIGNS: T-max 102.6 a few days ago, he has been afebrile since; port in the right subclavian location. LYMPHATIC: No lymphadenopathy. HEENT: Ocular movements are conjugate. Sclerae with mild jaundice or icterus. Oral cavity normal. NECK: Supple. EXTREMITIES: The right upper extremity is swollen compared with the left, but not tender. The port is not tender or erythematous without drainage. LUNGS: Symmetric clear breath sounds. HEART: S1 and S2. Regular rate. No S3 or S4. ABDOMEN: Soft, not distended or tender. No ascites. No bladder distention. No organomegaly noted. MUSCULOSKELETAL: No joint inflammatory activity. No edema. Pulses 1+ in dorsalis pedis. NEUROLOGIC: Moves extremities equally. He is awake, alert, oriented. Speech is normal. Normal recollection and orientation. LABORATORY DATA: White cell count is 8.4 and then went up to 9 and now is at 4.6, hemoglobin 9.1, platelets 81,000, 62% neutrophils. INR 1.0. Sodium 137; creatinine 0.89; bilirubin was 6.1, went up to 10.9, now is down to 6.9; and direct bilirubin was at 3.6, went up to 5.6, now is at 4.5; AST started at 61, up to 142, now is down to 118; ALT was 104, now 133; and albumin was 3.3 and now is 2.8. Urinalysis was normal except for urobilinogen and 2 sets of blood cultures with Klebsiella oxytoca with the broad susceptibility profile including quinolones. The patient had an abdomen MRI done on December 22, which showed appropriate position of the metallic stent in the right lobe of the liver. Minimal central intrahepatic biliary dilatation. Subtle enhancement surrounding the stent, which could represent cholangiocarcinoma and a simple cyst in the right lobe of the liver. ASSESSMENT: Type 2 diabetes with hypertension and recently diagnosed cholangiocarcinoma with a local and distant metastasis, on palliative chemotherapy through a port and obstruction of the biliary stent through the metallic stent, which was placed elsewhere, probably due to tumor growth. Now, he has another stent through this previous metallic stent and the Klebsiella bacteremia. DISCUSSION: The most likely scenario is ascending cholangitis associated with the obstruction of the metallic stent. Port colonization by the organism is less likely, although not completely ruled out. He does have obstruction with thrombosis of the venous system of the right upper extremity as noted in the ultrasound and he is on Lovenox for that and eventually to be transitioned to Eliquis. At this moment, we will switch him to levofloxacin and treating for 2 weeks and he will be at risk for recurrence of bacteremia with this for an alternate pathogen since he is likely to develop obstruction of biliary tract again. We will go ahead and submit one set of repeat cultures from the port if possible to document resolution of bacteremia. Job ID: [id number]
--- NOTE | 2019-12-25 18:02 | PRG ---
DATE OF SERVICE: 12/25/2019 REASON FOR CONSULTATION: Metastatic cholangiocarcinoma and elevated LFTs. SUBJECTIVE: The patient underwent ERCP with stent placement yesterday and in the postoperative period has not exhibited any problems and did not have any acute events or problems overnight. Today, the patient has been able to tolerate a liquid diet well with no problems. He currently denies any nausea, vomiting, fevers, chills, abdominal pain, or GI bleeding. OBJECTIVE: VITAL SIGNS: Temperature 97.8, pulse 72, blood pressure 128/79, respiratory rate 16, and, saturating 98% on room air. GENERAL: The patient is lying in bed, in no acute distress. Alert and oriented x4. CARDIOVASCULAR: Regular rate and rhythm. RESPIRATORY: Clear to auscultation bilaterally. ABDOMEN: Normoactive bowel sounds. Soft, nontender, and nondistended. EXTREMITIES: No cyanosis, clubbing, or edema. LABORATORY DATA: CBC with a white blood cell count of 4.6, hemoglobin 9.1, hematocrit 26.5, and platelets 81. Chemistry with a sodium of 137, potassium 4, chloride 105. CO2 of 24, BUN 14, creatinine 0.89, glucose 98, AST 118, ALT 130, alkaline phosphatase 593, and total bilirubin 6.9. IMAGING DATA: The patient underwent ERCP on December 24, 2019, which showed appropriate positioning of the biliary metal stent. However, further evaluation did show evidence of debris in the proximal end of the stent itself with little draining of bile from the stent. This was subsequently intervened upon with a 12 mm balloon that did show the extraction of old bile and some blood/clot material, but did not result in significant draining of bile. Subsequently, a 15 cm 11.5-Kyrgyz stent was placed through the previous metal stent into the left hepatic biliary system with drainage of bile, both endoscopically and radiographically afterwards. The incidental finding of Sharmin esophagitis was also seen during that particular procedure. ASSESSMENT AND PLAN: The patient is a 74-year-old male with past medical history of diabetes, hypertension, and metastatic cholangiocarcinoma, presenting with biliary obstruction, likely secondary to tumor ingrowth into the metal biliary stent resulting in elevated LFTs. Metastatic cholangiocarcinoma/elevated LFTs. The patient was initially diagnosed with cholangiocarcinoma with a [place] tumor in the end of 2018. He subsequently underwent urgent ERCP with stent placement to relieve the obstruction generated by the tumor itself. Subsequently, he was transferred to [place], where Spyglass was performed confirming the diagnosis of cholangiocarcinoma. He ultimately underwent the placement of an uncovered metal stent within the biliary tree in order to maintain patency and had been undergoing treatment per the Oncology Service. However, prior to admission, the patient began having increased jaundice as well as subjective fevers and chills concerning for biliary obstruction. On admission, he was noted to have elevated LFTs concerning for an obstructive-type process. He subsequently underwent a repeat ERCP on December 24, 2019, which showed probable tumor ingrowth within the proximal end of the metal biliary stent that was not amenable to balloon extraction. However, with placement of a plastic stent through the existing metal stent into the left hepatic biliary tree, the drainage of bile was then achieved currently with downtrending LFTs, indicating response to treatment thus far. RECOMMENDATIONS: 1. We would continue to trend his LFTs daily to monitor treatment to stent placement. 2. We would continue to trend his H and H in light of bleeding seen during the ERCP. 3. The patient will likely need a repeat ERCP within the next 3 months for removal of the plastic biliary stent. 4. We will have the patient followup Oncology service as part of treatment for the cholangiocarcinoma. 5. Sharmin esophagitis. During the ERCP, the patient was incidentally noted to have whitish plaques in the esophagus consistent with Sharmin esophagitis. He was not immediately placed on antifungal treatment due to his elevated LFTs and concern for hepatic toxicity/damage. However, with mild downtrending of his AST and ALT, as well as significant downtrending of his total bilirubin, treatment for this condition could be potentially entertained as long as careful monitoring of his LFTs are performed. RECOMMENDATIONS: 1. We would put the patient on fluconazole 200 mg daily x14 days for treatment of Sharmin esophagitis. 2. We would monitor his LFTs while inpatient to determine possible hepatic toxicity with immediate discontinuation of the medication if observed. We will continue to follow. Please call with any questions. Job ID: [id number] [facility] CENTERLila
--- NOTE | 2019-12-25 18:18 | PDOC.HOSPP ---
- Subjective Encounter Date: 12/25/19 Encounter Time: 11:30 Subjective: Patient seen and examined for cholangitis/RUE DVT. No fever or chills. Feels the same. No new complaints. No overnight events - Objective Vital Signs & Weight: Vital Signs (12 hours) Temp Pulse Resp BP Pulse Ox 12/25/19 16:57 97.8 F 72 16 128/79 98 12/25/19 11:44 97.7 F 79 18 129/81 97 12/25/19 08:15 82 12/25/19 08:00 98 12/25/19 07:40 97.5 F L 82 18 131/84 98 Weight Weight 165 lb 4.8 oz I&O: 12/24/19 12/25/19 12/26/19 06:59 06:59 06:59 Intake Total 3170 1380 240 Balance 3170 1380 240 Result Diagrams: 12/26/19 04:59 12/26/19 04:59 Additional Labs: Accuchecks 12/25/19 12/25/19 12/25/19 16:25 11:51 05:32 POC Glucose 186 H 141 H 100 12/24/19 12/24/19 20:23 19:26 POC Glucose 151 H 210 H Microbiology 12/20/19 14:24 Venous blood - Right Hand Blood Culture - Final Klebsiella oxytoca 12/20/19 14:24 Venous blood - Left Hand Blood Culture - Final Klebsiella oxytoca Laboratory Tests 12/25/19 05:40 Magnesium 1.2 L Total Bilirubin 6.9 H Direct Bilirubin 4.5 H AST 118 H ALT 130 H Alkaline Phosphatase 593 H Hospitalist ROS - Review of Systems Respiratory: denies: cough, dry, shortness of breath, hemoptysis, SOB with excertion, pleuritic pain, sputum, wheezing, other Cardiovascular: denies: chest pain, palpitations, orthopnea, paroxysmal noc. dyspnea, edema, light headedness, other - Medication Medications: Active Medications Generic Name Dose Route Start Last Admin Trade Name Freq PRN Reason Stop Dose Admin Acetaminophen 325 mg 12/20/19 15:45 12/25/19 08:18 Tylenol PO 325 mg Q6H PRN Administration Headache/Fever or Pain Enoxaparin Sodium 70 mg 12/24/19 17:00 12/25/19 17:10 Lovenox SC 70 mg 0500,1700 YULISA Administration Famotidine 20 mg 12/21/19 09:00 12/25/19 08:15 Pepcid PO 20 mg DAILY YULISA Administration Potassium Chloride/Sodium Chloride 1,000 ml in 1,000 mls @ 75 mls/hr 12/21/19 14:36 12/25/19 17:11 Ns 0.9% W/ 20 Meq Kcl IV 1,000 mls .[id number] YULISA Administration Insulin Human Regular 0 units 12/20/19 17:31 12/21/19 12:32 Humulin R SC 5 unit .MILD SLIDING SCALE PRN Administration Mild Correctional Scale Nifedipine 90 mg 12/21/19 09:00 12/25/19 08:15 Procardia Xl PO 90 mg QAM YULISA Administration Ursodiol 300 mg 12/24/19 17:00 12/25/19 17:10 Actigal PO 300 mg TID-WM YULISA Administration - Exam General Appearance: NAD Eye: scleral icterus Heart: RRR, no gallops Respiratory: no wheezes, no ronchi Gastrointestinal: non-tender, normal bowel sounds, no guarding, no rigidity Neurological: no new deficit Hosp A/P - Plan 1. Cholangitis with bacteremia - s/p ERCP 2. RUE DVT 3. Hypertension. 4. Hyperlipidemia. 5. Cholangiocarcinoma, on chemotherapy. 6. Right-sided nephrolithiasis. 7. L3 Osteolytic lesion - no need for TLSO per NSG 8. History of urinary retention with previous surgery. 9. Chronic kidney disease, stage 3. 10. Hypomagnesemia. 11. Esophageal Candidiasis. 12. Impaired glucose tolerance. PLAN: Cont Ceftriaxone Cont Lovenox Case d/w Dr Orellana AM labs LFTs in AM Fluconazole started Cont other meds as above
[2019-12-26] MEDS: Enoxaparin Sodium 80 MG/0.8 ML SYRINGE SC SCH ×2 (04:40→16:42)
[2019-12-26] MEDS: NS 0.9% w/ 20 MEQ KCL 1,000 ML/1,000 ML BAG IV SCH ×2 (04:41→16:42)
[2019-12-26 05:45] LABS: #Eosinphils 0.1 thou/uL (0.0-0.7); #Lymphocytes 2.4 thou/uL (1.20-3.40); #Monocytes 0.8 thou/uL (0.11-0.59); #Neutrophils 4.2 thou/uL (1.40-6.50); %Basophils 0.6 % (0.0-1.0); %Eosinophils 0.8 % (0.0-10.0); %Lymphocytes 31.9 % (21.0-51.0); %Monocytes 10.8 % (0.0-10.0); %Neutrophils 55.9 % (42.0-75.0); Hemoglobin 9.7 g/dL (14.0-18.0); Mean Corpuscular HGB CONC 33.2 g/dL (32.0-36.0); Mean Corpuscular Volume 96.6 fL (78.0-98.0); Mean Platelet Volume 9.9 fL (7.4-10.4); Platelet Count 94 thou/uL (130-400); RBC Distribution Width 14.8 % (11.5-14.5); Red Blood Cell (RBC) Count 3.02 mill/uL (4.70-6.10); White Blood Cell (WBC) Count 7.4 thou/uL (4.8-10.8)
[2019-12-26 05:49] LABS: ALT (SGPT) 116 U/L (8-55); AST (SGOT) 83 U/L (5-34); Albumin 3.1 g/dL (3.4-4.8); Alkaline Phosphatase 612 U/L (40-110); Anion Gap 11 mmol/L (10-20); BUN (Urea Nitrogen) 10 mg/dL (8.4-25.7); Bilirubin, Direct 4.4 mg/dL (0.1-0.3); Bilirubin, Total 6.1 mg/dL (0.2-1.2); Calc. Creatinine Clearance 71 mL/min (70-130); Calcium 8.7 mg/dL (7.8-10.44); Carbon Dioxide 26 mmol/L (23-31); Chloride 103 mmol/L (98-107); Estimated GFR-MDRD 76; Globulin 3.5 g/dL (2.4-3.5); Glucose 102 mg/dL (83-110); Magnesium 1.7 mg/dL (1.6-2.6); Potassium 3.7 mmol/L (3.5-5.1); Protein, Total 6.6 g/dL (5.8-8.1); Sodium 136 mmol/L (136-145)
[2019-12-26] MEDS ORDERED: Magnesium Sulfate 2 GM in Sodium Chloride 0.9% 100 ML IVPB SCH (07:45)
[2019-12-26] MEDS ORDERED: Magnesium 2 GM/50 ML 2 GM in Premix Bag 1 BAG IVPB SCH (08:15)
[2019-12-26] MEDS: Famotidine 20 MG TAB PO SCH (08:22)
[2019-12-26] MEDS: Ursodiol 300 MG CAP PO SCH ×3 (08:23→16:43)
[2019-12-26] MEDS: NIFEdipine XL 90 MG TAB PO SCH (08:23)
--- NOTE | 2019-12-26 08:56 | PDOC.HOSPP ---
- Subjective Encounter Date: 12/26/19 Encounter Time: 08:56 Subjective: Patient seen and examined for Bacteremia. No new fever or chills. No new complaints. No overnight events - Objective Vital Signs & Weight: Vital Signs (12 hours) Temp Pulse Resp BP BP Pulse Ox 12/26/19 08:23 92 143/90 H 12/26/19 07:40 98 F 92 17 143/90 H 99 Weight Weight 165 lb 4.8 oz I&O: 12/25/19 12/26/19 12/27/19 06:59 06:59 06:59 Intake Total 1380 240 Balance 1380 240 Result Diagrams: 12/26/19 04:59 12/26/19 04:59 Additional Labs: Accuchecks 12/26/19 12/25/19 12/25/19 05:25 19:28 16:25 POC Glucose 108 91 186 H 12/25/19 11:51 POC Glucose 141 H Hospitalist ROS - Review of Systems Cardiovascular: denies: chest pain, palpitations, orthopnea, paroxysmal noc. dyspnea, edema, light headedness, other Gastrointestinal: denies: nausea, vomiting, abdominal pain, diarrhea, constipation, melena, hematochezia, other - Medication Medications: Active Medications Generic Name Dose Route Start Last Admin Trade Name Freq PRN Reason Stop Dose Admin Acetaminophen 325 mg 12/20/19 15:45 12/25/19 08:18 Tylenol PO 325 mg Q6H PRN Administration Headache/Fever or Pain Enoxaparin Sodium 70 mg 12/24/19 17:00 12/26/19 04:40 Lovenox SC 70 mg 0500,1700 YULISA Administration Famotidine 20 mg 12/21/19 09:00 12/26/19 08:22 Pepcid PO 20 mg DAILY YULISA Administration Potassium Chloride/Sodium Chloride 1,000 ml in 1,000 mls @ 75 mls/hr 12/21/19 14:36 12/26/19 04:41 Ns 0.9% W/ 20 Meq Kcl IV 1,000 mls .[id number] YULISA Administration Magnesium Sulfate 2 gm/ Device 50 mls @ 100 mls/hr 12/26/19 08:15 12/26/19 08 :43 IVPB 12/26/19 11:00 50 mls NOW YULISA Administration Insulin Human Regular 0 units 12/20/19 17:31 12/21/19 12:32 Humulin R SC 5 unit .MILD SLIDING SCALE PRN Administration Mild Correctional Scale Levofloxacin 750 mg 12/26/19 06:00 12/26/19 04:40 Levaquin PO 750 mg 0600 YULISA Administration Nifedipine 90 mg 12/21/19 09:00 12/26/19 08:23 Procardia Xl PO 90 mg QAM YULISA Administration Ursodiol 300 mg 12/24/19 17:00 12/26/19 08:23 Actigal PO 300 mg TID-WM YULISA Administration - Exam General Appearance: NAD Neck: supple, no JVD Heart: RRR, no gallops Respiratory: no wheezes, no ronchi Gastrointestinal: non-tender, normal bowel sounds Extremities: no cyanosis Neurological: no new deficit Hosp A/P - Plan 1. Cholangitis with bacteremia - s/p ERCP 2. RUE DVT 3. Hypertension. 4. Hyperlipidemia. 5. Cholangiocarcinoma, on chemotherapy. 6. Right-sided nephrolithiasis. 7. L3 Osteolytic lesion - no need for TLSO per NSG 8. History of urinary retention with previous surgery. 9. Chronic kidney disease, stage 3. 10. Hypomagnesemia. 11. Esophageal Candidiasis - on Fluconazole 12. Impaired glucose tolerance. PLAN: Cont PO Levaquin Replace Magnesium Cont Lovenox for DVT - no new episodes bleeding AM labs Cont other meds as above
--- NOTE | 2019-12-26 11:28 | PDOC.MOPN ---
Interval History: no complaints. up walking in room. - Vital Signs Vital Signs: Vital Signs (12 hours) Temp Pulse Resp BP BP Pulse Ox 12/26/19 08:23 92 143/90 H 12/26/19 07:40 98 F 92 17 143/90 H 99 Weight Weight 165 lb 4.8 oz - Physical Exam General: Alert, Oriented x3, No acute distress HEENT: Atraumatic, PERRLA, EOMI, Mucous membr. moist/pink Lungs: Clear to auscultation, Normal air movement Cardiovascular: Regular rate, Normal S1, Normal S2, No murmurs, Gallops, Rubs Abdomen: Normal bowel sounds, Soft, No tenderness, No hepatospenomegaly, No masses Extremities: No clubbing, No cyanosis, No edema, Normal pulses, No tenderness/ swelling Neurological: Normal speech - Labs Result Diagrams: 12/26/19 04:59 12/26/19 04:59 Lab results: Laboratory Results - last 24 hr 12/26/19 05:25: POC Glucose 108 12/26/19 04:59: WBC 7.4, RBC 3.02 L, Hgb 9.7 L, Hct 29.2 L, MCV 96.6, MCH 32.0 H , MCHC 33.2, RDW 14.8 H, Plt Count 94 L, MPV 9.9, Neutrophils % 55.9, Lymphocytes % 31.9, Monocytes % 10.8 H, Eosinophils % 0.8, Basophils % 0.6, Neutrophils # 4.2, Lymphocytes # 2.4, Monocytes # 0.8 H, Eosinophils # 0.1, Basophils # 0.0 12/26/19 04:59: Sodium 136, Potassium 3.7, Chloride 103, Carbon Dioxide 26, Anion Gap 11, BUN 10, Creatinine 0.96, Estimated GFR (MDRD) 76, Glucose 102, Calcium 8.7, Magnesium 1.7, Total Bilirubin 6.1 H, Direct Bilirubin 4.4 H, AST 83 H, ALT 116 H, Alkaline Phosphatase 612 H, Serum Total Protein 6.6, Albumin 3.1 L, Globulin 3.5, Albumin/Globulin Ratio 0.9 L 12/25/19 19:28: POC Glucose 91 12/25/19 16:25: POC Glucose 186 H 12/25/19 11:51: POC Glucose 141 H Status: lab reviewed by me A/P - Problem (1) Cholangiocarcinoma Current Visit: Yes Code(s): C22.1 - INTRAHEPATIC BILE DUCT CARCINOMA Status : Acute - Plan Plan: bilirubin improved, less jaundice tolerated clear liquid diet chemo planned for next week will sign off. call if needed.
[2019-12-26] MEDS ORDERED: Fluconazole 100 MG TAB PO SCH (12:45)
--- NOTE | 2019-12-26 13:11 | PRG ---
DATE OF SERVICE: 12/26/2019 SUBJECTIVE: Mr. Dhillon has no abdominal pain. He has no acute complaints. OBJECTIVE: VITAL SIGNS: Temperature 97.6, pulse 88, and blood pressure 122/88. GENERAL: He is in no acute distress, jaundiced. LUNGS: Clear to auscultation bilaterally. HEART: Regular rate and rhythm without murmur. ABDOMEN: Soft, nontender, and nondistended. Bowel sounds are present. EXTREMITIES: No lower extremity edema. LABORATORY DATA: White blood cell count 7.4, hemoglobin 9.7, and platelets 94,000. INR 1.0, bilirubin 6.1, AST 83, ALT 116, and alkaline phosphatase 612. IMPRESSION: 1. 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 He had a plastic biliary stent placed within the metal stent. His bilirubin has decreased over the last couple of days; however, his alkaline phosphatase is increasing. He did grow Klebsiella from his blood cultures, which was likely secondary to biliary source. His blood culture drawn yesterday is negative. 2. Fungal esophagitis. RECOMMENDATIONS: 1. He has minimal symptoms now and could potentially be discharged home today with antibiotics since he is tolerating his diet and has no abdominal pain. 2. I would expect it is matter of time before the plastic stent will provide an adequate drainage. The liver tests should be followed. He will likely require exchange of the plastic stent in a month if this will even hold up that long. 3. Follow up with Dr. Sandy in the office or by [facility]. 4. I will start fluconazole 200 mg orally today and then 100 mg daily for 13 more days for the fungal esophagitis. Job ID: [id number]
--- NOTE | 2019-12-26 13:56 | EKG ---
Test Reason : SEPSIS Blood Pressure : / mmHG Vent. Rate : 084 BPM Atrial Rate : 084 BPM P-R Int : 164 ms QRS Dur : 090 ms QT Int : 384 ms P-R-T Axes : 015 -05 018 degrees QTc Int : 453 ms Normal sinus rhythm Possible Inferior infarct , age undetermined Abnormal ECG Confirmed by LICO DALE DO ([id number]), editorial director SHAHBAZ PERES ([id number]) on 12/26/2019 1:55:31 PM Referred By: Confirmed By:LICO DALE DO
[2019-12-27] MEDS: Enoxaparin Sodium 80 MG/0.8 ML SYRINGE SC SCH (04:30)
[2019-12-27] MEDS: NS 0.9% w/ 20 MEQ KCL 1,000 ML/1,000 ML BAG IV SCH (04:30)
[2019-12-27 06:54] LABS: #Eosinphils 0.1 thou/uL (0.0-0.7); #Lymphocytes 2.1 thou/uL (1.20-3.40); #Monocytes 0.9 thou/uL (0.11-0.59); #Neutrophils 4.2 thou/uL (1.40-6.50); %Basophils 0.1 % (0.0-1.0); %Eosinophils 0.9 % (0.0-10.0); %Lymphocytes 28.5 % (21.0-51.0); %Monocytes 12.2 % (0.0-10.0); %Neutrophils 58.2 % (42.0-75.0); Hemoglobin 9.7 g/dL (14.0-18.0); Mean Corpuscular HGB CONC 34.3 g/dL (32.0-36.0); Mean Corpuscular Hemoglobin 32.9 pg (27.0-31.0); Mean Corpuscular Volume 95.9 fL (78.0-98.0); Mean Platelet Volume 10.2 fL (7.4-10.4); Platelet Count 105 thou/uL (130-400); RBC Distribution Width 15.4 % (11.5-14.5); Red Blood Cell (RBC) Count 2.95 mill/uL (4.70-6.10); White Blood Cell (WBC) Count 7.3 thou/uL (4.8-10.8)
[2019-12-27 07:09] LABS: ALT (SGPT) 98 U/L (8-55); AST (SGOT) 68 U/L (5-34); Albumin 3.1 g/dL (3.4-4.8); Alkaline Phosphatase 577 U/L (40-110); Anion Gap 15 mmol/L (10-20); BUN (Urea Nitrogen) 8 mg/dL (8.4-25.7); Bilirubin, Direct 3.9 mg/dL (0.1-0.3); Bilirubin, Total 5.3 mg/dL (0.2-1.2); Calc. Creatinine Clearance 71 mL/min (70-130); Calcium 8.9 mg/dL (7.8-10.44); Carbon Dioxide 22 mmol/L (23-31); Chloride 103 mmol/L (98-107); Estimated GFR-MDRD 76; Glucose 116 mg/dL (83-110); Potassium 3.6 mmol/L (3.5-5.1); Protein, Total 6.6 g/dL (5.8-8.1); Sodium 136 mmol/L (136-145)
[2019-12-27] MEDS: NIFEdipine XL 90 MG TAB PO SCH (08:02)
[2019-12-27] MEDS: Ursodiol 300 MG CAP PO SCH (08:02)
[2019-12-27] MEDS: Famotidine 20 MG TAB PO SCH (08:03)
[2019-12-27] MEDS ORDERED: Fluconazole 100 MG TAB PO SCH (09:00)
[2019-12-27] MEDS ORDERED: Famotidine 20 MG TAB PO SCH (09:00)
--- NOTE | 2019-12-27 10:44 | PRG ---
DATE OF SERVICE: 12/27/2019 SUBJECTIVE: Mr. Dhillon says he is doing very well. There is no abdominal pain or nausea. He is tolerating his diet. He is anxious to go home. OBJECTIVE: VITAL SIGNS: Temperature 97.6, pulse 98, blood pressure 113/80, 100% oxygen saturation on room air. GENERAL: No acute distress. HEART: Regular rate and rhythm. LUNGS: Clear to auscultation bilaterally. ABDOMEN: Soft, nontender to palpation. EXTREMITIES: No peripheral edema. LABORATORY STUDIES: WBC 7.3, hemoglobin 9.7, platelets 105. INR 1.0. Sodium 136, potassium 3.6, BUN 8, creatinine 0.96, total bilirubin is down to 5.3, direct bilirubin 3.9, alkaline phosphatase 577, AST 68, ALT 98. ASSESSMENT AND PLAN: 1. 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 He had plastic biliary stent placed within his mental stent [address] Sandy. Bilirubin is decreasing nicely over the past few days. Again discussed with the patient that this is really a temporizing measure and the plastic stent will likely occlude within the next few weeks to months. 2. Klebsiella bacteremia. The patient is on appropriate antibiotics. Continue antibiotics following discharge per Dr. Orellana' recommendations. a. Sharmin esophagitis. The patient has been started on a 2-week course of fluconazole, lower dose of 100 mg daily for 2 weeks. The patient will be following up with Oncology next week for planned further chemotherapy. We will have him follow up as a telehealth visit with Dr. Sandy in the next couple of weeks as well. GI will sign off, but please call back anytime with questions or concerns. Job ID: [id number]
[2019-12-27 11:13] VITALS: BP 109/79; TEMP 97.5
--- NOTE | 2019-12-28 08:08 | DIS ---
DATE OF ADMISSION: 12/20/2019 DATE OF DISCHARGE: 12/27/2019 DISCHARGE DISPOSITION: Home. FOLLOWUP: 1. Follow up with primary care physician, Dr. Misty Yanes, as scheduled. 2. Follow up with Dr. Taylor next week for chemotherapy. 3. Follow up with Gastroenterology, Dr. Sandy and Infectious Disease, Dr. Orellana. DISCHARGE MEDICATIONS: 1. Eliquis 5 mg b.i.d. 2. Diflucan 100 mg daily for 12 days. 3. Levaquin 750 mg daily for one more week. 4. Ursodiol 300 mg 3 times a day. The patient was seen on the day of discharge. Denies any new complaints. BRIEF HOSPITAL COURSE: The patient is a 74-year-old male with cholangiocarcinoma, presented to the emergency room with abnormal LFTs from the [facility]. He underwent chemo the day before admission. He also had low-grade fever along with chills. Please refer to the history and physical for further details. The patient was admitted to the hospital with a diagnosis of obstructive jaundice with suspected cholangitis. His blood culture two of two was positive for Klebsiella oxytoca. He was placed on meropenem that has been transitioned to Levaquin per Infectious Disease recommendation. He was also evaluated by GI as well as Oncology Service. He underwent ERCP on December 24, 2019, by Dr. Sandy. He was found to have mild Sharmin in the distal esophagus. He was started on antifungals. On December 24, 2019, he noticed swelling in the right upper extremity. Doppler was consistent with right upper extremity DVT. He has been started on Lovenox that has been transitioned to Eliquis. Repeat cultures have been negative. Dr. Orellana does not think that his port is infected. He has been cleared by consultants for discharge. FINAL DIAGNOSES: 1. Obstructive jaundice with cholangitis secondary to metastatic cholangiocarcinoma, status post endoscopic retrograde cholangiopancreatography with stent placement this admission. 2. Klebsiella bacteremia. 3. Sharmin esophagitis. 4. Hypertension. 5. Hyperlipidemia. 6. Impaired glucose tolerance. 7. Right-sided nephrolithiasis. 8. L3 vertebral body osteolytic lesion. Oncology is advised to follow. I discussed with Neurosurgery. They recommended no need for TLSO brace. 9. History of urinary retention with previous surgeries. 10. Chronic kidney disease, stage 3. The patient understands the above plan of care. Job ID: [id number]
--- NOTE | 2019-12-31 08:38 | PQF ---
CHADWICK HURLEY MALIK MD [id number] CLINICAL DOCUMENTATION CLARIFICATION FORM: POST DISCHARGE Addendum to original discharge summary date: ____ Late entry note date: __ DATE: 12/31/2019 ATTN: Mikey Ayers Please exercise your independent, professional judgment in responding to the clarification form. Clinical indicators are provided on the bottom of this form for your review Please check appropriate box(es): [ x ] Sepsis due to cholangitis Due to: [ ] Device (please specify) [ x ] Biliary Stent [ ] Localized infection without sepsis [ ] Other diagnosis [ ] Unable to determine In addition, please specify: Present on Admission (POA): [x] Yes [ ] No [ ] Unable to determine For continuity of documentation, please document condition throughout progress notes and discharge summary. Thank You. CLINICAL INDICATORS - SIGNS / SYMPTOMS / LABS Laboratory WBC 9.0; 5.0; 2.6, Plt count 114, Neutrophils 86.5, Lactic Acid 1.9 Vital signs 4/2 BP 100/70, Pulse 114, Resp 16, Temp 98.2 Blood culture positive with Klebsiella oxytoca H&P p1 12/19 Lad due to jaundice, he underwent a cT scan of the abdomen that was consistent with suspected cholangitis H&P p1 12/19 Ladha He also had low-grade fever of 99 with some chills earlier today ID consult p3 12/25 Dr Orellana Obstruction of biliary stent through the metallic stent, which was placed elsewhere, probably due to tumor growth. Now he has another stent thought previous stent and the Klebsiella bacteremia RISK FACTORS H&P p1 4/2 74-year-old male H&P p1 4/2 Cholangiocarcinoma H&P p1 4 s/p billiary stent placement H&P p3 4/2 Cholangitis H&P p3 4/2 HTN H&P p3 4/2 HLD H&P p3 4/2 CKD 3 H&P p3 12/19 Bone mets PN p1 12/24 - DM DS p1 12/26 Sharmin esophagitis TREATMENTS: NOV 20 IV Rocephin 2gm NOV 20 IVF NS 1L NOV 20 Levaquin 750mg oral Blood culture 12/19 ERCP with stent placement 12/23 DR Sandy ID consult 12/24 Reyna Garcia (This form is maintained as a part of the permanent medical record) 2014 [email or web address], [email or web address] All Rights Reserved [email or web address]
== END 2019-12-27 11:23 | disposition home or self-care (01) | DRG 919 ==
LOC: ERS 13:11 → T4-B 15:35 → INTOOBSV 15:35 → OBSVTOIN 15:35
PROVIDERS: ADMIT Internal Medicine; ATTEND Internal Medicine
PROC: 0FW Hepatobiliary System and Pancreas, Revision (ICD-10-PCS; principal; 2019-12-24)
DX: T85.79XA Infection and inflammatory reaction due to other internal prosthetic devices, implants and grafts, initial encounter (principal); K83.1 Obstruction of bile duct; A41.59 Other Gram-negative sepsis; K83.09 Other cholangitis; C22.1 Intrahepatic bile duct carcinoma; C79.51 Secondary malignant neoplasm of bone; B37.81 Candidal esophagitis; I82.621 Acute embolism and thrombosis of deep veins of right upper extremity; I12.9 Hypertensive chronic kidney disease with stage 1 through stage 4 chronic kidney disease, or unspecified chronic kidney disease; N18.3 Chronic kidney disease, stage 3 (moderate); E78.5 Hyperlipidemia, unspecified; N20.0 Calculus of kidney; E83.42 Hypomagnesemia; E11.22 Type 2 diabetes mellitus with diabetic chronic kidney disease; D63.1 Anemia in chronic kidney disease; Y83.1 Surgical operation with implant of artificial internal device as the cause of abnormal reaction of the patient, or of later complication, without mention of misadventure at the time of the procedure; Z90.49 Acquired absence of other specified parts of digestive tract; Z88.0 Allergy status to penicillin; Z79.4 Long term (current) use of insulin; Z79.899 Other long term (current) drug therapy; Z88.2 Allergy status to sulfonamides; Z98.52 Vasectomy status; Z87.891 Personal history of nicotine dependence
CPT/HCPCS: 36415; 36416; 71045; 74170; 74183; 74330; 80048; 80053; 80076; 81003; 82248; 83605; 83615; 83690; 83735; 84100; 84550; 85025; 85610; 85730; 86301; 87040; 87077; 87149; 87186; 93005; 96365; A9579; C1769; C2625; J0696; J1610; J1642; J1650; J1815; J2001; J2185; J2405; J2543; J2704; J3010; J3475; J3480; J3490; J7050; Q9967

== ENCOUNTER 2020-03-03 08:56 | Outpatient (CLI) | payer MEDICARE ==
--- NOTE | 2020-03-03 10:58 | CT ---
CT THORAX WITH CONTRAST CT ABDOMEN WITH CONTRAST CT PELVIS WITH CONTRAST: DATE: 03/03/2020 HISTORY: 74-year-old male with malignant neoplasm of extrahepatic bile duct. On chemotherapy. Currently jaundi ce. COMPARISON: CT abdomen of 12/19/2019 TECHNIQUE: IV iodinated contrast media: Administered Oral contrast media: Administered Single phase scans of thorax, abdomen, and pelvis. FINDINGS: Comparison of the abdominal findings is somewhat limited because of the lower quality images of the p rior CT in part due to mild patient motion on the prior CT. CHEST: Lungs are essentially clear. Thoracic aorta is tortuous. No aneurysm or dissection. No mediastinal or hilar lymphadenopathy. No cardiomegaly or pericardial effusion. Atherosclerotic calcification of LAD. No pleural effusion or pneumothorax. Trachea and major bronchi are patent and clear. ABDOMEN: The vertically oriented biliary stent remains, from left hepatic stent to lower portion of second sta ge of duodenum. Now, there is a second, smaller stent which has been placed inside the original stent in coaxial fashion, with upper portion at the level of the common hepatic duct, and lower porti on at the mid third stage of the duodenum. There continues to be diffuse dilation of the entire intrahepatic biliary tree which appears similar or minimally worse than before. The previously mentio puma 3 x 2.4 cm in the region of the upper portion of the common hepatic duct, surrounding the stent, which was thought to represent residual malignant tumor, is no larger than it was previously, and possibly has become slightly smaller and more subtle, currently measuring approximately approximately 1.5 x 2 cm. (Axial image 54 of 135, series 2) slightly inferior and slightly lateral to that, again noted is the round 1.7 cm cyst in right lobe of liver at the inferior portion of hepatic segment 5, as mentioned on the recent MRI report. There is a new finding of a small amounts of free fluid around the liver and spleen, and at the bilat eral paracolic gutters.. The spleen has become slightly larger, currently measuring 12.5 x 14 cm, at upper limits of normal. No pancreatic ductal dilation. Descending colon diverticulosis. No small bowel dilation. 3 x 2 x 2 cm cyst at lower pole of right kidney. No hydronephrosis. Essentially normal abdominal aorta. PELVIS: Moderate amount of free fluid within pelvic cavity. Proximal sigmoid colonic diverticulosis. Presence of surrounding free fluid makes it difficult to vijay luate for diverticulitis. Enlarged, partially calcified prostate gland. Diffuse mural thickening of small volume urinary bladde r. SKELETON: There is a 1.6 x 1.8 x 1.4 cm osteolytic lesion with incomplete thin sclerotic rim, at the left side of the L3 vertebral body with cortical breakthrough. Density approximately 85 Hounsfield units. Unchanged. It enhances strongly on the MRI. At anterior inferior portion of T12 vertebral body slightly to the left of midline, there is a 0.7 x 0.6 x 0.6 cm osteolytic lesion with surrounding thin sclerotic rim. (Axial image 57 of 135 series 2; coronal image 35 of 15, series 5). It enhances strongly on the previous MRI. This is very difficul t to recognize were it not for the MRI finding. Its sclerotic rim has become more prominent, making it more visible now, whereas it was very conspicuous on 12/19/2019. Size is unchanged. IMPRESSION: 1) in addition to the previously existing biliary stent, there has been interval placement of a secon d, much longer biliary stent, the upper portion of which is within the lumen of the original stent in coaxial fashion, and lower portion of which is far into the midportion of the third stage of the d uodenum. 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 3) degree of intrahepatic biliary ductal dilation is either stable or slightly worse now. 4) 2 skeletal metastatic lesions, at T12 and L3 vertebral bodies, unchanged. 5) new finding of small volume of ascites. 6) new finding of mild splenomegaly.
[2020-03-03] MEDS ORDERED: Iopamidol-370 76% 500 ML 1 ML ONE (12:46)
== END 2020-03-03 08:57 | disposition home or self-care (01) ==
LOC: BICCT 08:56
PROVIDERS: ATTEND Internal Medicine Hematology & Oncology
DX: C24.0 Malignant neoplasm of extrahepatic bile duct (principal); C79.51 Secondary malignant neoplasm of bone; R16.1 Splenomegaly, not elsewhere classified; R18.8 Other ascites; K83.8 Other specified diseases of biliary tract; Z96.89 Presence of other specified functional implants
CPT/HCPCS: 71260; 74177; Q9967

== ENCOUNTER 2020-05-20 10:38 | Day surgery (SDC) | payer MEDICARE ==
[2020-05-20 12:03] VITALS: BMI 26.3
[2020-05-20 12:05] VITALS: BP 136/82; TEMP 97.5
--- NOTE | 2020-05-20 12:58 | ULT ---
Ultrasound-guided paracentesis: HISTORY: Cholangiocarcinoma and ascites. FINDINGS: Informed consent obtained prior to the procedure. Preprocedural imaging demonstrated intrap eritoneal free fluid. An area was marked in the mid axillary line in the right mid abdomen, and then meticulously prepped a nd draped in normal sterile fashion and anesthetized with 1% buffered lidocaine. With direct sonographic guidance, a 19-gauge needle and 5 [place] Yueh catheter were advanced into the abdomen. After the return of fluid, the catheter was advanced, and the needle was removed. Approximately 3.2 L of clear dark yellow-colored fluid was aspirated. The introducer sheath was remov ed, and hemostasis was achieved with direct pressure. A dry sterile dressing was placed. The patient tolerated the procedure well and without immediate complication. IMPRESSION: Technically successful ultrasound-guided paracentesis.
[2020-05-20 13:05] LABS: RBC Count-Automated (BF) 623 /cu.mm; WBC/Nucleated-Auto (BF) 476 uL
[2020-05-20 13:08] LABS: BF Color Yellow; Body Fluid Source Ascites Body Fluid; Clarity Hazy (Clear); Tube # EDTA
[2020-05-20 13:11] LABS: BF Segmented Neutrophils 4 %; Cell Count Non Hematic 73 %; Lymphocytes 22 %
== END 2020-05-20 11:45 | disposition home or self-care (01) ==
LOC: ULT 10:38
PROVIDERS: ATTEND Internal Medicine Gastroenterology
PROC: 0W9G3ZZ Drainage of Peritoneal Cavity, Percutaneous Approach (ICD-10-PCS; principal; 2020-05-20)
DX: C22.1 Intrahepatic bile duct carcinoma (principal); R18.8 Other ascites; E11.9 Type 2 diabetes mellitus without complications; I10 Essential (primary) hypertension; J30.2 Other seasonal allergic rhinitis; Z88.0 Allergy status to penicillin
CPT/HCPCS: 49083; 82042; 84157; 84478; 85060; 87070; 87205; 89051

== ENCOUNTER 2020-05-27 08:54 | Day surgery (SDC) | payer MEDICARE ==
[2020-05-23 12:31] VITALS: BMI 26.3
[2020-05-27] MEDS ORDERED: Sodium Bicarbonate 2.5 MEQ/5 ML VIAL ONE (09:39)
[2020-05-27] MEDS ORDERED: Lidocaine 1% PF 5 ML VIAL ONE (09:39)
[2020-05-27 10:43] VITALS: BP 137/79; TEMP 97.8
--- NOTE | 2020-05-27 11:11 | ULT ---
Sonographic guided paracentesis HISTORY: Symptomatic ascites. FINDINGS: After explaining the procedure and answering all questions, sonographic survey showed a lar ge amount of free fluid throughout the abdomen. Sterile technique, buffered local anesthesia, sonographic guidance, and a right lateral approach were used to carefully advance a 19-gauge Yueh needle and catheter into the free fluid. Catheter was left to drain a total volume of 5.0 L clear yellow liquid. Catheter was removed with moderate amount of free fluid remaining. Patient was limited to 5 L given t hat he was drained last week of 3.2 L. Patient tolerated the procedure well and was dismissed in good condition. IMPRESSION : Technically successful sonographic guided paracentesis 5.0 L.
== END 2020-05-27 10:25 | disposition home or self-care (01) ==
LOC: ULT 08:54
PROVIDERS: ATTEND Internal Medicine Gastroenterology
PROC: 0W9G3ZZ Drainage of Peritoneal Cavity, Percutaneous Approach (ICD-10-PCS; principal; 2020-05-27)
DX: R18.8 Other ascites (principal); C22.1 Intrahepatic bile duct carcinoma; I10 Essential (primary) hypertension; E11.9 Type 2 diabetes mellitus without complications; D64.9 Anemia, unspecified; Z79.01 Long term (current) use of anticoagulants; Z79.899 Other long term (current) drug therapy; Z88.0 Allergy status to penicillin
CPT/HCPCS: 49083; 88112; 88305

== ENCOUNTER 2020-06-02 08:36 | Day surgery (SDC) | payer MEDICARE ==
[2020-05-30 11:12] VITALS: BMI 25.5
[2020-06-02 08:55] LABS: #Basophils 0.1 thou/uL (0.0-0.2); #Eosinphils 0.2 thou/uL (0.0-0.7); #Lymphocytes 1.8 thou/uL (1.20-3.40); #Monocytes 0.9 thou/uL (0.11-0.59); #Neutrophils 8.4 thou/uL (1.40-6.50); %Basophils 0.8 % (0.0-1.0); %Lymphocytes 15.8 % (21.0-51.0); %Monocytes 7.8 % (0.0-10.0); %Neutrophils 73.7 % (42.0-75.0); Hemoglobin 10.7 g/dL (14.0-18.0); Mean Corpuscular HGB CONC 31.7 g/dL (32.0-36.0); Mean Platelet Volume 8.9 fL (7.4-10.4); Platelet Count 180 thou/uL (130-400); RBC Distribution Width 13.6 % (11.5-14.5); Red Blood Cell (RBC) Count 3.36 mill/uL (4.70-6.10); White Blood Cell (WBC) Count 11.4 thou/uL (4.8-10.8)
[2020-06-02 08:57] LABS: INR-International Normal Ratio 1.2; PTT 35.2 sec (22.9-36.1); Prothrombin Time 14.7 sec (12.0-14.7)
[2020-06-02] MEDS ORDERED: Lidocaine 1% PF 5 ML VIAL ONE (08:57)
[2020-06-02] MEDS ORDERED: Sodium Bicarbonate 2.5 MEQ/5 ML VIAL ONE (08:57)
--- NOTE | 2020-06-02 10:15 | ULT ---
Ultrasound-guided paracentesis: HISTORY: Bile duct neoplasm. Recurrent ascites. FINDINGS: Informed consent obtained prior to the procedure. Preprocedural imaging demonstrated intrap eritoneal free fluid. An area was marked in the Right lower quadrant , and then meticulously prepped and draped in normal s terile fashion and anesthetized with 1% buffered lidocaine. With direct sonographic guidance, a 19-gauge needle and 5 [place] BlueArceh catheter were advanced into the abdomen. After the return of fluid, the catheter was advanced, and the needle was removed. Approximately 5 L of clear dark straw-colored fluid was aspirated. The introducer sheath was removed , and hemostasis was achieved with direct pressure. A dry sterile dressing was placed. The patient tolerated the procedure well and without immediate complication. IMPRESSION: Technically successful ultrasound-guided paracentesis.
[2020-06-02 10:35] VITALS: BP 130/83; TEMP 97.5
== END 2020-06-02 10:05 | disposition home or self-care (01) ==
LOC: ULT 08:36
PROVIDERS: ATTEND Internal Medicine Gastroenterology
PROC: 0W9G3ZX Drainage of Peritoneal Cavity, Percutaneous Approach, Diagnostic (ICD-10-PCS; principal; 2020-06-02)
PROC: BW40ZZZ Ultrasonography of Abdomen (ICD-10-PCS; 2020-06-02)
DX: R18.8 Other ascites (principal); C22.1 Intrahepatic bile duct carcinoma; C79.9 Secondary malignant neoplasm of unspecified site; D63.0 Anemia in neoplastic disease; E11.9 Type 2 diabetes mellitus without complications; I10 Essential (primary) hypertension; Z86.718 Personal history of other venous thrombosis and embolism; Z79.01 Long term (current) use of anticoagulants; Z79.899 Other long term (current) drug therapy; Z88.0 Allergy status to penicillin
CPT/HCPCS: 36415; 49083; 85025; 85610; 85730; 88112; 88305

== ENCOUNTER 2020-06-09 07:37 | Day surgery (SDC) | payer MEDICARE ==
[2020-06-06 12:52] VITALS: BMI 26.3
[2020-06-09] MEDS ORDERED: Lidocaine 1% PF 5 ML VIAL ONE (08:15)
[2020-06-09] MEDS ORDERED: Sodium Bicarbonate 2.5 MEQ/5 ML VIAL ONE (08:15)
[2020-06-09 08:24] LABS: Anion Gap 14 mmol/L (10-20); BUN (Urea Nitrogen) 23 mg/dL (8.4-25.7); Calc. Creatinine Clearance 54 mL/min (70-130); Carbon Dioxide 24 mmol/L (23-31); Chloride 100 mmol/L (98-107); Estimated GFR-MDRD 55; Glucose 104 mg/dL (83-110); Potassium 4.2 mmol/L (3.5-5.1); Sodium 134 mmol/L (136-145)
--- NOTE | 2020-06-09 09:53 | ULT ---
Sonographic guided paracentesis HISTORY: Symptomatic ascites. FINDINGS: After explaining the procedure and answering all questions, sonographic survey showed a lar ge amount of free fluid throughout the abdomen. Sterile technique, buffered local anesthesia, sonographic guidance, and a right lateral approach were used to carefully advance a 19-gauge Yueh needle and catheter into the free fluid. Catheter was left to drain a total volume of 5.0 L clear yellow liquid. Catheter was removed with small amount of fluid remaining. Patient tolerated the procedure well and was dismissed in good condition. IMPRESSION : Technically successful sonographic guided paracentesis.
[2020-06-09 10:00] VITALS: BP 116/79; TEMP 97.4
== END 2020-06-09 09:30 | disposition home or self-care (01) ==
LOC: ULT 07:37
PROVIDERS: ATTEND Internal Medicine Gastroenterology
PROC: 0W9G3ZZ Drainage of Peritoneal Cavity, Percutaneous Approach (ICD-10-PCS; principal; 2020-06-09)
DX: R18.8 Other ascites (principal); C22.1 Intrahepatic bile duct carcinoma; E11.9 Type 2 diabetes mellitus without complications; I10 Essential (primary) hypertension; J30.2 Other seasonal allergic rhinitis; Z79.01 Long term (current) use of anticoagulants; Z79.899 Other long term (current) drug therapy; Z88.0 Allergy status to penicillin
CPT/HCPCS: 49083; 80048

== ENCOUNTER 2020-06-16 12:05 | Day surgery (SDC) | payer MEDICARE ==
[2020-06-16 08:28] VITALS: BMI 26.3
[2020-06-16] MEDS ORDERED: Sodium Bicarbonate 2.5 MEQ/5 ML VIAL ONE (12:27)
[2020-06-16] MEDS ORDERED: Lidocaine 1% PF 5 ML VIAL ONE (13:49)
--- NOTE | 2020-06-16 13:54 | RAD ---
EXAM: CHEST ONE VIEW HISTORY: Shortness of breath, prethoracentesis evaluation for COMPARISON: 12/20/2019 FINDINGS: Right-sided Mediport catheter is again noted in place there is a moderately large right pleural effus ion with associated airspace opacity probably attributable to atelectasis. Superimposed infiltrate cannot be excluded. Left lung is clear. Right cardiac border is obscured. No other interval change. IMPRESSION: Interval development of a moderately large right pleural effusion with associated parenchymal opacity likely related to atelectasis. Superimposed pneumonia could not be entirely excluded.
--- NOTE | 2020-06-16 15:07 | ULT ---
Left thoracentesis sonographic guided HISTORY: Dyspnea. Recurrent ascites. FINDINGS: Patient was originally scheduled for sonographic guided paracentesis. Survey of the abdomen , however, showed only a small amount of abdominal fluid. A large amount of right pleural fluid was seen sonographically and was confirmed with radiograph. Findings were discussed with Dr. Sandy. Decision was made to perform a sonographic guided thoracente sis. After explaining the procedure and answering all questions, large amount of left pleural fluid was vi sualized. Sterile technique, buffered local anesthesia, posterior approach, sonographic guidance were used to carefully advance a 19-gauge Yueh needle and catheter into the left pleural fluid. Catheter was left to drain a total volume of 3.4 L clear yellow liquid. Catheter was removed with sma ll amount of fluid remaining. Patient tolerated the procedure well and was dismissed in good condition. IMPRESSION : Technically successful sonographic guided left thoracentesis. Paracentesis not performed, as there was little abdominal fluid. Code CR.
[2020-06-16 15:10] VITALS: BP 122/81; TEMP 97.8
[2020-06-16 15:45] LABS: RBC Count-Automated (BF) 372 /cu.mm; WBC/Nucleated-Auto (BF) 306 uL
[2020-06-16 15:49] LABS: Body Fluid Source Thoracentesis Fluid; Tube # EDTA
[2020-06-16 15:50] LABS: BF Color Yellow; Clarity Hazy (Clear)
[2020-06-16 15:52] LABS: BF Segmented Neutrophils 13 %; Cell Count Non Hematic 46 %; Lymphocytes 41 %
--- NOTE | 2020-06-16 16:14 | RAD ---
CHEST ONE VIEW: Indication: History of thoracentesis. Comparison: 06-16-2020 FINDINGS: Since the comparison examination there has been near complete resolution of the right sided pleural e ffusion. Small residual effusion remains. There is some residual atelectasis within the right lower l obe. No pneumothorax is evident. Left lung is clear. Right chest wall port is unchanged. IMPRESSION: Status post thoracentesis with small residual right sided pleural effusion. No definite pneumothorax demonstrated. POS: BH
== END 2020-06-16 15:00 | disposition home or self-care (01) ==
LOC: ULT 12:05
PROVIDERS: ATTEND Internal Medicine Gastroenterology
PROC: 0W9B3ZZ Drainage of Left Pleural Cavity, Percutaneous Approach (ICD-10-PCS; principal; 2020-06-16)
PROC: BB4BZZZ Ultrasonography of Pleura (ICD-10-PCS; 2020-06-16)
DX: J94.8 Other specified pleural conditions (principal); R18.8 Other ascites; C22.1 Intrahepatic bile duct carcinoma; C79.51 Secondary malignant neoplasm of bone; I10 Essential (primary) hypertension; Z86.718 Personal history of other venous thrombosis and embolism; Z79.01 Long term (current) use of anticoagulants; Z79.899 Other long term (current) drug therapy; Z88.1 Allergy status to other antibiotic agents; Z88.0 Allergy status to penicillin
CPT/HCPCS: 49083; 71045; 76942; 83615; 85060; 88112; 88305; 89051

== ENCOUNTER 2020-07-02 10:31 | Day surgery (SDC) | payer MEDICARE ==
[2020-07-01 13:18] VITALS: BMI 26.3
[2020-07-02 10:53] LABS: #Eosinphils 0.1 thou/uL (0.0-0.7); %Basophils 0.1 % (0.0-1.0); %Eosinophils 0.7 % (0.0-10.0); %Neutrophils 85.2 % (42.0-75.0); Hemoglobin 11.7 g/dL (14.0-18.0); Mean Corpuscular HGB CONC 32.4 g/dL (32.0-36.0); Mean Corpuscular Hemoglobin 33.9 pg (27.0-31.0); Mean Platelet Volume 8.7 fL (7.4-10.4); Platelet Count 184 thou/uL (130-400); RBC Distribution Width 13.8 % (11.5-14.5); Red Blood Cell (RBC) Count 3.47 mill/uL (4.70-6.10)
[2020-07-02] MEDS ORDERED: Sodium Bicarbonate 2.5 MEQ/5 ML VIAL ONE (11:08)
[2020-07-02] MEDS ORDERED: Lidocaine 1% PF 5 ML VIAL ONE (11:08)
[2020-07-02 11:13] LABS: PTT 35.3 sec (22.9-36.1)
[2020-07-02 11:14] LABS: INR-International Normal Ratio 1.6; Prothrombin Time 19.2 sec (12.0-14.7)
[2020-07-02 11:57] VITALS: BP 134/85; TEMP 97.6
--- NOTE | 2020-07-02 12:41 | ULT ---
Limited abdominal ultrasound: 07/02/2020 HISTORY: Evaluate ascites for possible paracentesis FINDINGS: Sonographic assessment of the abdomen/pelvis does not demonstrate significant ascites. Part ially imaged right lung base demonstrates findings suggesting a prominent right pleural effusion, incompletely assessed on this exam. IMPRESSION: No significant ascites. Findings suggesting a prominent incompletely imaged right pleural effusion for which dedicated imaging of the chest is suggested.
== END 2020-07-02 11:46 | disposition home or self-care (01) ==
LOC: ULT 10:31
PROVIDERS: ATTEND Internal Medicine Gastroenterology
DX: R18.8 Other ascites (principal); C22.1 Intrahepatic bile duct carcinoma; I82.721 Chronic embolism and thrombosis of deep veins of right upper extremity; E11.9 Type 2 diabetes mellitus without complications; I10 Essential (primary) hypertension; N40.0 Benign prostatic hyperplasia without lower urinary tract symptoms; Z79.01 Long term (current) use of anticoagulants; Z79.899 Other long term (current) drug therapy; Z88.0 Allergy status to penicillin; Z88.1 Allergy status to other antibiotic agents
CPT/HCPCS: 36415; 49083; 76705; 85025; 85610; 85730

== ENCOUNTER → 2020-07-08 | Day surgery (SDC) | payer MEDICARE ==
--- NOTE | 2020-07-08 09:21 | RAD ---
2 VIEW CHEST: Date: 07/08/2020 HISTORY: Dyspnea. Comparison made to portable chest of 06/16/2020. FINDINGS: There is now complete opacification of the right hemithorax since the prior study indicating developm ent of a large right pleural effusion. The left lung is clear with no significant effusion on the left. MediPort catheter remains unchanged in position. IMPRESSION: Complete opacification of the right hemithorax has occurred since the prior study. POS: OFF
== END ==
LOC: BICRAD 08:53 → SDC/OP 08:54
PROVIDERS: ATTEND Internal Medicine Critical Care Medicine
DX: R06.00 Dyspnea, unspecified (principal)
CPT/HCPCS: 71046

== ENCOUNTER → 2020-07-08 | Day surgery (SDC) | payer MEDICARE ==
[2020-07-08 16:25] LABS: Pleural Fluid, Protein 1.1 g/dL
[2020-07-08 16:27] LABS: RBC Count-Automated (BF) 230 /cu.mm; WBC/Nucleated-Auto (BF) 208 uL
[2020-07-08 16:38] LABS: BF Color Yellow; Body Fluid Source Pleural Fluid; Clarity Hazy (Clear); Tube # EDTA
[2020-07-08 16:42] LABS: BF Segmented Neutrophils 13 %; Cell Count Non Hematic 47 %; Eosinophils 3 %; Lymphocytes 34 %
--- NOTE | 2020-07-14 11:24 | CON ---
History and Physical DATE: 07/08/2020 HISTORY OF PRESENT ILLNESS: Mr. Dhillon is a pleasant 75-year-old male. Most of the history is obtained from his daughter. He apparently has cholangiocarcinoma. He has frequent abdominal paracenteses, but recently he was found to have pleural fluid, but no abdominal fluid. He was referred for further evaluation. He does not report dyspnea at rest, but has had dyspnea on exertion. PAST MEDICAL HISTORY: Remarkable for: 1. Hiatal hernia. 2. Hypertension. 3. Borderline diabetes. 4. History of urinary retention in the past. 5. History of cholecystectomy. 6. History of biliary stenting. 7. History of herniorrhaphy. 8. Cataract surgery. 9. Placement of a MediPort. FAMILY HISTORY: Positive for diabetes. SOCIAL HISTORY: Nonsmoker and nondrinker. REVIEW OF SYSTEMS: Ten points otherwise negative except for shortness of breath. PHYSICAL EXAMINATION: GENERAL: This is a very pleasant gentleman, in no distress. He is icteric. HEENT: His pupils are equal. Sclerae are icteric. Extraocular movements are full. NECK: Supple. LUNGS: Remarkable for absent breath sounds on the right. HEART: Regular rhythm. ABDOMEN: Soft and nontender. EXTREMITIES: Trace edema. NEUROLOGIC: Nonfocal. DIAGNOSTIC STUDIES: Chest x-ray shows a large right-sided effusion. IMPRESSION: Pleural effusion. PLAN: He will undergo a diagnostic therapeutic tap. Risks of bleeding, infection, and lung collapse were explained. Job ID: [id number] MTDD
--- NOTE | 2020-07-15 07:35 | OP ---
DATE OF PROCEDURE: 07/08/2020 PROCEDURE PERFORMED: Thoracentesis. INDICATION: Pleural effusion. DESCRIPTION OF PROCEDURE: The patient was placed in the sitting position. Right posterior hemithorax was cleansed with chlorhexidine. 10 mL of 1% lidocaine was used to anesthetize the skin and the pleura. A small incision was made with a #11 blade. An 8-[place] Island[place] [id number] catheter was inserted in the pleural space. 3 L of clear yellow pleural fluid were easily evacuated. No air was evacuated, so no postprocedure chest radiograph was done. Fluid was transudative with an LDH of 65 and a protein of 1.1. It was relatively acellular. Cytology was negative. The patient tolerated procedure well. Job ID: [id number]
== END ==
LOC: SDC/OP 10:35
PROVIDERS: ATTEND Internal Medicine Critical Care Medicine
PROC: 0BJQ3ZZ Inspection of Pleura, Percutaneous Approach (ICD-10-PCS; principal; 2020-07-08)
DX: J90 Pleural effusion, not elsewhere classified (principal); C22.1 Intrahepatic bile duct carcinoma; I10 Essential (primary) hypertension; R73.03 Prediabetes; Z88.0 Allergy status to penicillin
CPT/HCPCS: 32554; 71046; 82150; 82945; 83615; 84157; 85060; 87070; 87205; 88112; 88305; 89051

== ENCOUNTER 2020-07-30 10:04 | Day surgery (SDC) | payer MEDICARE ==
[2020-07-29 15:04] VITALS: BMI 26.6
[~2020-07-30 10:04] MED LIST changes: +FLU VACC QS2020-21(65YR UP)/PF 240 MCG/0.7 ML SYRINGE IM ONE; -Iopamidol 370 76% 100 ML VIAL ONE
[2020-07-30] MEDS ORDERED: Lidocaine 1% PF 5 ML VIAL ONE (10:42)
--- NOTE | 2020-07-30 11:49 | RAD ---
EXAM: XR Chest Insp/Exp PROVIDED CLINICAL HISTORY: Post thoracentesis. COMPARISON: Chest x-ray on 06/16/2020 FINDINGS: Right-sided Mediport catheter remains in place. There is complete opacification of the right hemithor ax. Minimal linear densities are seen in the left lung which may be related to minimal atelectasis. No left pleural effusion is identified. Right cardiac border is obscured. No other interval change. IMPRESSION: Complete opacification right hemithorax without pneumothorax identified. Opacification right hemithor ax is likely due to large right pleural effusion and volume loss which is seen on recent ultrasound examination. Findings were discussed with Dr. Wan on 07/30/2020 at 1144 hours
--- NOTE | 2020-07-30 12:01 | ULT ---
EXAM: US Thoracentesis PROVIDED CLINICAL HISTORY: Ascites and right pleural effusion COMPARISON: 06/16/2020 TECHNIQUE: The procedure including the risks and complications were explained to the patient, and informed conse nt was obtained. This examination was scheduled as an ultrasound-guided paracentesis, but only a small amount of ascites is present. However, as noted on prior exam, there is a large right pleural e ffusion present. Right-sided thoracentesis was requested. Limited sonographic evaluation right hemithorax was performed. An area overlying the posterolateral l ower right chest was marked, and the area was meticulously prepped and draped in usual sterile fashion. Skin and subcutaneous tissues were infiltrated with buffered 1% lidocaine for local anesthes ia. A small skin incision was made. Utilizing concurrent real-time ultrasound guidance, a 19-gauge [employer] needle with 5 [place] sheath was advanced into the pleural space. There was a return of clear str aw-colored fluid. Catheter was advanced, and needle was removed. Approximately 1 L of clear straw-colored fluid was aspirated. No additional fluid was aspirated as requested. Catheter was remov ed, and hemostasis was achieved with direct pressure. Dry sterile dressing was placed at puncture site. The patient tolerated the procedure well and without immediate complication. Follow-up chest x-ray de monstrates complete opacification right hemithorax likely due to residual very large right pleural effusion. IMPRESSION: 1. Technically successful ultrasound-guided right thoracentesis. 2. Follow-up chest x-ray demonstrates complete opacification right hemithorax likely due to residual large right pleural effusion which is also seen on sonographic evaluation. 3. Findings were discussed with Dr. Wan on 07/30/2020 1144 hours.
[2020-07-30 12:39] VITALS: BP 115/77; TEMP 97.4
== END 2020-07-30 12:00 | disposition home or self-care (01) ==
LOC: ULT 10:04
PROVIDERS: ATTEND Internal Medicine Gastroenterology
PROC: 0W993ZZ Drainage of Right Pleural Cavity, Percutaneous Approach (ICD-10-PCS; principal; 2020-07-30)
DX: J90 Pleural effusion, not elsewhere classified (principal); R18.8 Other ascites; C22.1 Intrahepatic bile duct carcinoma; E11.9 Type 2 diabetes mellitus without complications; I10 Essential (primary) hypertension; Z79.01 Long term (current) use of anticoagulants; Z79.899 Other long term (current) drug therapy; Z88.1 Allergy status to other antibiotic agents
CPT/HCPCS: 71045; 76942; 87070; 87205; 88112